=== PATIENT | male | born 1955 | race Caucasian/White ===

== ENCOUNTER 2020-08-07 12:07 | Observation (INO) | payer BC, OTHER ==
[2020-08-07] VITALS (9 sets, daily range): BP systolic 112–152; BP diastolic 53–95
[~2020-08-07] VITALS: Ht 180.3 cm; Wt 158.6 kg
[~2020-08-07 12:07] MED LIST: ASPI-482 PO; CIPR500T94 PO; HYDR12.575 PO; KRIL500C PO; LISI20TA18 PO; LOVA20TA2 PO; TAMS0.4C97 PO; THIA100T22 PO
--- NOTE | 2020-08-07 13:09 | ED.ADGEN ---
Past Medical History Past Medical History: High Cholesterol, Hypertension, Other Additional Past Medical Histor: obesity Past Surgical History: No Surgical History Smoking Status: Never Smoker Alcohol Use: Rarely Drug Use: None General Adult EDM: Chief Complaint: LOWEREXTREMITY INJURY HPI: HPI: Patient is a 65 year old male, accompanied by his brother, who presents to the emergency room with complaints of left lower leg pain. Patient states that he got up to do some steps because he has been working at home and when he stood up his left ankle gave out and he heard a loud pop. Patient states he has been unable to bear weight on the affected extremity since injury. He denies any knee, hip, or back pain after the fall. He currently rates his pain a 3 out of 10 on pain scale. He states he has felt a little nauseated by the pain but he denies any need for pain or nausea medication at this time. Review of Systems: Review of Systems: Complete ROS is negative unless otherwise noted in HPI. Allergies: Allergies: Allergies Coded Allergies Type Severity Reaction Last Updated Verified No Known Drug Allergies 10/20/13 No Physical Exam: PE: See Above Constitutional: Well developed, well nourished, no acute distress, non-toxic appearance, obese. [] HENT: Normocephalic, atraumatic, bilateral external ears normal, nose normal. [] Eyes: PERRLA, EOMI, conjunctiva normal, no discharge. [] Neck: Normal range of motion, no stridor. [] Cardiovascular:Heart rate regular rhythm Lungs & Thorax: Respirations even and unlabored, no retractions, no respiratory distress Skin: Warm, dry, no erythema, no rash. [] Extremities: LLE: medial and lateral TTP without crepitus or obvious deformity, 2+ pedal pulse, No cyanosis, ROM limited due to injury, 1+ edema. [] Neurologic: Alert and oriented X 3, no focal deficits noted. [] Psychologic: Affect normal, judgement normal, mood normal. [] Current Patient Data: Vital Signs: Vital Signs Date Time Temp Pulse Resp B/P (MAP) Pulse Ox O2 Delivery O2 Flow Rate FiO2 08/07/20 12:19 99.0 106 22 136/66 (89) 96 Room Air 99.0 EKG: EKG: [] Heart Score: Risk Factors: Risk Factors: DM, Current or recent (<one month) smoker, HTN, HLP, family history of CAD, obesity. Risk Scores: Score 0 - 3: 2.5% MACE over next 6 weeks - Discharge Home Score 4 - 6: 20.3% MACE over next 6 weeks - Admit for Clinical Observation Score 7 - 10: 72.7% MACE over next 6 weeks - Early Invasive Strategies Radiology/Procedures: Radiology/Procedures: PROCEDURE: ANKLE LEFT 3V EXAM: AP, oblique and lateral views of the left ankle DATE: 08/07/2020 12:34 PM INDICATION: Reason: L ankle pain after fall and feeling pop / Spl. Instructions: / History: COMPARISON: No Prior FINDINGS: There is a transverse fracture through the base of the medial malleolus with lateral subluxation of the talus relative to the tibia. In addition there is widening of the distal tibiofibular syndesmosis as well as an oblique fracture through the distal fibular shaft. Subtle lucency through the posterior malleolus suspicious for nondisplaced posterior malleolar fracture. Ankle joint effusion. Moderate associated soft tissue swelling. Small plantar calcaneal enthesophyte. IMPRESSION: 1. Left ankle fracture with transverse fracture through the base of the medial malleolus, oblique fracture through the distal fibular shaft and suspected nondisplaced posterior malleolar fracture. 2. Ankle joint soft tissue swelling.[] Course & Med Decision Making: Course & Med Decision Making Pertinent Labs and Imaging studies reviewed. (See chart for details) 1300-advised Dr. Peralta and patient in the emergency department with a left ankle fracture. Patient's last p.o. intake was at 9:00 this morning. We will keep patient n.p.o. and advise him of need for surgery. We will also admit patient to the hospitalist. [address] Khanna who is the admitting physician, and care was assumed following discussion of patient. Will admit patient for left ankle fracture Patient's vital signs stable. Patient remains afebrile, appears nontoxic, respirations even and unlabored. Patient will be admitted to the medical/surgical floor. Patient's case and plan of care also discussed with Dr. Vera [] Kris Disclaimer: Kris Disclaimer: This electronic medical record was generated, in whole or in part, using a voice recognition dictation system. Departure Departure Impression: Primary Impression: Closed left ankle fracture Disposition: 09 ADMITTED INPT THIS HOSP Admitting Physician: FERMIN (Jey) Condition: STABLE Referrals: MIHIR FULLER MD (PCP) Problem Qualifiers Primary Impression: Closed left ankle fracture Encounter type: initial encounter Qualified Codes: S82.892A - Other fracture of left lower leg, initial encounter for closed fracture SALVADOR SAMPSON APRN Aug 07, 2020 13:09
--- NOTE | 2020-08-07 13:09 | RAD ---
EXAM: AP, oblique and lateral views of the left ankle DATE: 08/07/2020 12:34 PM INDICATION: Reason: L ankle pain after fall and feeling pop / Spl. Instructions: / History: COMPARISON: No Prior FINDINGS: There is a transverse fracture through the base of the medial malleolus with lateral subluxation of t he talus relative to the tibia. In addition there is widening of the distal tibiofibular syndesmosis as well as an oblique fracture through the distal fibular shaft. Subtle lucency through the posterio r malleolus suspicious for nondisplaced posterior malleolar fracture. Ankle joint effusion. Moderate associated soft tissue swelling. Small plantar calcaneal enthesophyte. IMPRESSION: 1. Left ankle fracture with transverse fracture through the base of the medial malleolus, oblique fr acture through the distal fibular shaft and suspected nondisplaced posterior malleolar fracture. 2. Ankle joint soft tissue swelling. Electronically signed by: Alfonzo Brumfield MD (08/07/2020 1:06 PM) APRIL
[2020-08-07 13:26] LABS: BASO % 1 % (0-3); EOS # 0.1 x10^3/uL (0.0-0.7); EOS % 2 % (0-3); HEMATOCRIT 44.2 % (39.0-53.0); HEMOGLOBIN 15.1 g/dL (13.0-17.5); LYMPH # 1.4 x10^3/uL (1.0-4.8); LYMPH % 21 % (24-48); MEAN CORPUSCULAR HEMOGLOBIN 31 pg (25-35); MEAN CORPUSCULAR HGB CONC 34 g/dL (31-37); MEAN CORPUSCULAR VOLUME 92 fL (79-100); MONO # 0.4 x10^3/uL (0.0-1.1); MONO % 5 % (0-9); NEUT # 4.6 x10^3/uL (1.8-7.7); NEUT % 71 % (31-73); PLATELET COUNT 137 x10^3/uL (140-400); RED BLOOD COUNT 4.81 x10^6/uL (4.30-5.70); RED CELL DISTRIBUTION WIDTH 14.3 % (11.5-14.5); WHITE BLOOD COUNT 6.4 x10^3/uL (4.0-11.0)
[2020-08-07] MEDS ORDERED: fentaNYL PF VIAL 100 MCG/2 ML VIAL IV PRN (13:30)
[2020-08-07] MEDS ORDERED: HYDROmorphone 2 MG/ML VIAL IV PRN (13:30)
[2020-08-07] MEDS ORDERED: PROCHLORPERAZINE 10 MG/2 ML VIAL. IV PRN (13:30)
[2020-08-07] MEDS ORDERED: ONDANSETRON PF 4 MG/2 ML VIAL. IV PRN ×2 (13:30→14:45)
[2020-08-07] MEDS ORDERED: IV RINGERS,LACTATED 1000ML 1,000 ML IV SCH (13:30)
[2020-08-07 13:38] LABS: CALCIUM 9.4 mg/dL (8.5-10.1); CREATININE 1.2 mg/dL (0.7-1.3); GFR 61.1; POTASSIUM 4.9 mmol/L (3.5-5.1)
--- NOTE | 2020-08-07 14:28 | PDOC1 ---
History and Physical Date of Admission Date of Admission DATE: 08/07/20 TIME: 14:28 Identification/Chief Complaint Chief Complaint 65 year old male, accompanied by his brother, who presents to the emergency room with complaints of left lower leg pain. Patient states that he got up to do some EXERCISE steps because he has been working at home and when he stood up his left ankle gave out and he heard a loud pop. Patient states he has been unable to bear weight on the affected extremity since injury. He denies any knee, hip, or back pain after the fall. He currently rates his pain a 3 out of 10 on pain scale. he has felt a little nauseated by the pain D/W BROTHER IN ER, NPO Past Medical History Past Medical History Past Medical History Past Medical History: High Cholesterol, Hypertension, Other Additional Past Medical Histor: obesity Past Surgical History: No Surgical History Smoking Status: Never Smoker Alcohol Use: Rarely Drug Use: None fhx HTN Cardiovascular: Hyperlipidemia Pulmonary: No pertinent hx GI: No pertinent hx Heme/Onc: No pertinent hx Infectious disease: No pertinent hx ENT: No pertinent hx Renal/: No pertinent hx Dermatology: No pertinent hx Family History Family History: Hypertension Social History Smoke: No ALCOHOL: none Drugs: None, Other (WORKS [employer] ) Current Problem List Problem List Problems Medical Problems: (1) Closed left ankle fracture Status: Acute Current Medications Current Medications Current Medications Ondansetron HCl (Zofran) 4 mg PRN Q6HRS PRN IV NAUSEA/VOMITING; Start 08/07/20 at 13:30; Stop 08/08/20 at 13:29 Fentanyl Citrate (Fentanyl 2ml Vial) 25 mcg PRN Q5MIN PRN IV MILD PAIN 1-3; Start 08/07/20 at 13:30; Stop 08/08/20 at 13:29 Fentanyl Citrate (Fentanyl 2ml Vial) 50 mcg PRN Q5MIN PRN IV MODERATE TO SEVERE PAIN; Start 08/07/20 at 13:30; Stop 08/08/20 at 13:29 Morphine Sulfate (Morphine Sulfate) 1 mg PRN Q10MIN PRN IV SEVERE PAIN 7-10; Start 08/07/20 at 13:30; Stop 08/08/20 at 13:29 Ringer's Solution 1,000 ml @ 30 mls/hr Q24H IV ; Start 08/07/20 at 13:30; Stop 08/08/20 at 01:29 Hydromorphone HCl (Dilaudid) 0.5 mg PRN Q10MIN PRN IV SEV PAIN, Second choice; Start 08/07/20 at 13:30; Stop 08/08/20 at 13:29 Prochlorperazine Edisylate (Compazine) 5 mg PACU PRN PRN IV NAUSEA, MRX1; Start 08/07/20 at 13:30; Stop 08/08/20 at 13:29 Active Scripts Active Reported Krill Oil 500 Mg Capsule 300 Mg PO DAILY Vitamin B-1 (Thiamine Mononitrate) 100 Mg Tablet 100 Mg PO DAILY Cipro (Ciprofloxacin Hcl) 500 Mg Tablet 500 Mg PO BID Aspir 81 (Aspirin) 81 Mg Tablet.dr 81 Mg PO DAILY Flomax (Tamsulosin Hcl) 0.4 Mg Cap.er.24h 0.4 Mg PO DAILY Lovastatin 20 Mg Tablet 20 Mg PO DAILY Hydrochlorothiazide 12.5 Mg Capsule 6.25 Mg PO DAILY Lisinopril 20 Mg Tablet 20 Mg PO DAILY Allergies Allergies: Coded Allergies: No Known Drug Allergies (Unverified , 10/20/13) ROS General: No: Chills, Night Sweats, Fatigue, Malaise, Appetite, Other PSYCHOLOGICAL ROS: No: Anxiety, Behavioral Disorder, Concentration difficultie, Decreased libido, Depression, Disorientation, Hallucinations, Hostility, Irritablity, Memory difficulties, Mood Swings, Obsessive thoughts, Physical abuse, Sexual abuse, Sleep disturbances, Suicidal ideation, Other Eyes: No Blurry vision, No Decreased vision, No Double vision, No Dry eyes, No Excessive tearing, No Eye Pain, No Itchy Eyes, No Loss of vision, No Photophobia, No Scotomata, No Uses contacts, No Uses glasses, No Other HEENT: No: Heacaches, Visual Changes, Hearing change, Nasal congestion, Nasal discharge, Oral lesions, Sinus pain, Sore Throat, Epistaxis, Sneezing, Snoring, Tinnitus, Vertigo, Vocal changes, Other ALLERGY AND IMMUNOLOGY: No: Hives, Insect Bite Sensitivity, Itchy/Watery Eyes, Nasal Congestion, Post Nasal Drip, Seasonal Allergies, Other Hematological and Lymphatic: No: Bleeding Problems, Blood Clots, Blood Transfusions, Brusing, Night Sweats, Pallor, Swollen Lymph Nodes, Other ENDOCRINE: No: Breast Changes, Galactorrhea, Hair Pattern Changes, Hot Flashes, Malaise/lethargy, Mood Swings, Palpitations, Polydipsia/polyuria, Skin Changes, Temperature Intolerance, Unexpected Weight Changes, Other Breast: No New/Changing Breast Lumps, No Nipple changes, No Nipple discharge, No Other Respiratory: No: Cough, Hemoptysis, Orthopnea, Pleuritic Pain, Shortness of breath, SOB with excertion, Sputum Changes, Stridor, Tachypnea, Wheezing, Other Cardiovascular: No Chest Pain, No Palpitations, No Orthopnea, No Paroxysmal Noc. Dyspnea, No Edema, No Lt Headedness, No Other Gastrointestinal: No Nausea, No Vomiting, No Abdominal Pain, No Diarrhea, No Constipation, No Melena, No Hematochezia, No Other Genitourinary: No Dysuria, No Frequency, No Incontinence, No Hematuria, No Retention, No Discharge, No Urgency, No Pain, No Flank Pain, No Other, No , No , No , No , No , No , No Musculoskeletal: Yes Gait Disturbance, Yes Joint Pain Neurological: Yes Gait Disturbance; No Behavorial Changes, No Bowel/Bladder ControlChng, No Confusion, No Dizziness, No Headaches, No Impaired Coord/balance, No Memory Loss, No Numbness/Tingling, No Seizures, No Speech Problems, No Tremors, No Visual Changes, No Weakness, No Other Skin: No Dry Skin, No Eczema, No Hair Changes, No Lumps, No Mole Changes, No Mottling, No Nail Changes, No Pruritus, No Rash, No Skin Lesion Changes, No Other, No Acne Physical Exam Physical Exam Constitutional: Well developed, well nourished, MILD acute distress, non-toxic appearance, obese. [] HENT: Normocephalic, atraumatic, bilateral external ears normal, nose normal. [] Eyes: PERRLA, EOMI, conjunctiva normal, no discharge. [] Neck: Normal range of motion, no stridor. [] Cardiovascular:Heart rate regular rhythm Lungs & Thorax: Respirations even and unlabored, no retractions, no respiratory distress Skin: Warm, dry, no erythema, no rash. [] Extremities: LLE: medial and lateral TTP without crepitus or obvious deformity, 2+ pedal pulse, No cyanosis, ROM limited due to injury, 1+ edema. [] Neurologic: Alert and oriented X 3, no focal deficits noted. [] Psychologic: Affect normal, judgment normal, mood normal. [] General: Alert, Oriented X3, Cooperative, mild distress HEENT: Atraumatic, PERRLA, EOMI, Mucous membr. moist/pink Lungs: Clear to auscultation, Normal air movement Heart: S1S2, RRR, no thrills, no gallops Breasts: Not examined Abdomen: Normal bowel sounds, Soft Rectal Exam: not examined PELVIC: Examination not indicated Extremities: No clubbing, No cyanosis, Normal pulses Neuro: Normal speech, Cranial nerves 3-12 NL Psych/Mental Status: Mental status NL, Mood NL Vitals Vitals Vital Signs Date Time Temp Pulse Resp B/P (MAP) Pulse Ox O2 Delivery O2 Flow Rate FiO2 08/07/20 12:19 99.0 106 22 136/66 (89) 96 Room Air 99.0 Labs Labs Laboratory Tests Test 08/07/20 13:10 08/07/20 13:25 White Blood Count 6.4 x10^3/uL (4.0-11.0) Red Blood Count 4.81 x10^6/uL (4.30-5.70) Hemoglobin 15.1 g/dL (13.0-17.5) Hematocrit 44.2 % (39.0-53.0) Mean Corpuscular Volume 92 fL (79-100) Mean Corpuscular Hemoglobin 31 pg (25-35) Mean Corpuscular Hemoglobin Concent 34 g/dL (31-37) Red Cell Distribution Width 14.3 % (11.5-14.5) Platelet Count 137 x10^3/uL (140-400) Neutrophils (%) (Auto) 71 % (31-73) Lymphocytes (%) (Auto) 21 % (24-48) Monocytes (%) (Auto) 5 % (0-9) Eosinophils (%) (Auto) 2 % (0-3) Basophils (%) (Auto) 1 % (0-3) Neutrophils # (Auto) 4.6 x10^3/uL (1.8-7.7) Lymphocytes # (Auto) 1.4 x10^3/uL (1.0-4.8) Monocytes # (Auto) 0.4 x10^3/uL (0.0-1.1) Eosinophils # (Auto) 0.1 x10^3/uL (0.0-0.7) Basophils # (Auto) 0.0 x10^3/uL (0.0-0.2) Sodium Level 139 mmol/L (136-145) Potassium Level 4.9 mmol/L (3.5-5.1) Chloride Level 100 mmol/L (98-107) Carbon Dioxide Level 29 mmol/L (21-32) Anion Gap 10 (6-14) Blood Urea Nitrogen 14 mg/dL (8-26) Creatinine 1.2 mg/dL (0.7-1.3) Estimated GFR (Cockcroft-Gault) 61.1 Glucose Level 130 mg/dL (70-99) Calcium Level 9.4 mg/dL (8.5-10.1) SARS-CoV-2 Antigen (Rapid) Negative (NEGATIVE) Laboratory Tests Test 08/07/20 13:10 08/07/20 13:25 White Blood Count 6.4 x10^3/uL (4.0-11.0) Red Blood Count 4.81 x10^6/uL (4.30-5.70) Hemoglobin 15.1 g/dL (13.0-17.5) Hematocrit 44.2 % (39.0-53.0) Mean Corpuscular Volume 92 fL (79-100) Mean Corpuscular Hemoglobin 31 pg (25-35) Mean Corpuscular Hemoglobin Concent 34 g/dL (31-37) Red Cell Distribution Width 14.3 % (11.5-14.5) Platelet Count 137 x10^3/uL (140-400) Neutrophils (%) (Auto) 71 % (31-73) Lymphocytes (%) (Auto) 21 % (24-48) Monocytes (%) (Auto) 5 % (0-9) Eosinophils (%) (Auto) 2 % (0-3) Basophils (%) (Auto) 1 % (0-3) Neutrophils # (Auto) 4.6 x10^3/uL (1.8-7.7) Lymphocytes # (Auto) 1.4 x10^3/uL (1.0-4.8) Monocytes # (Auto) 0.4 x10^3/uL (0.0-1.1) Eosinophils # (Auto) 0.1 x10^3/uL (0.0-0.7) Basophils # (Auto) 0.0 x10^3/uL (0.0-0.2) Sodium Level 139 mmol/L (136-145) Potassium Level 4.9 mmol/L (3.5-5.1) Chloride Level 100 mmol/L (98-107) Carbon Dioxide Level 29 mmol/L (21-32) Anion Gap 10 (6-14) Blood Urea Nitrogen 14 mg/dL (8-26) Creatinine 1.2 mg/dL (0.7-1.3) Estimated GFR (Cockcroft-Gault) 61.1 Glucose Level 130 mg/dL (70-99) Calcium Level 9.4 mg/dL (8.5-10.1) SARS-CoV-2 Antigen (Rapid) Negative (NEGATIVE) Images Images PATIENT: BEKAH FRANK ACCOUNT: [id number] : 1955 LOCATION: ER AGE: 65 SEX: M EXAM STATUS: REG ER ORD. PHYSICIAN: SALVADOR SAMPSON APRN REASON: L ankle pain after fall and feeling pop PROCEDURE: ANKLE LEFT 3V EXAM: AP, oblique and lateral views of the left ankle DATE: 08/07/2020 12:34 PM INDICATION: Reason: L ankle pain after fall and feeling pop / Spl. Instructions: / History: COMPARISON: No Prior FINDINGS: There is a transverse fracture through the base of the medial malleolus with l ateral subluxation of the talus relative to the tibia. In addition there is widening of the distal tibiofibular syndesmosis as well as an oblique fracture through the distal fibular shaft. Subtle lucency through the posterior malleolus suspicious for nondisplaced posterior malleolar fracture. Ankle joint effusion. Moderate associated soft tissue swelling. Small plantar calcaneal e nthesophyte. IMPRESSION: 1. Left ankle fracture with transverse fracture through the base of the medial malleolus, oblique fracture through the distal fibular shaft and suspected nondisplaced posterior malleolar fracture. 2. Ankle joint soft tissue swelling. Electronically signed by: Alfonzo Gilman MD (08/07/2020 1:06 PM) [facility] DICTATED and SIGNED BY: ALFONZO GILMAN MD DATE: 08/07/20 [id number] VTE Prophylaxis Ordered VTE Prophylaxis Devices: Contraindicated VTE Pharmacological Prophylaxi: Yes Assessment/Plan Assessment/Plan IMPRESSION: 1. ACUTE Left ankle fracture with transverse fracture through the base of the medial malleolus, oblique fracture through the distal fibular shaft and suspected nondisplaced posterior malleolar fracture. 2. Morbid obesity 3. MECHANICAL FALL AT HOME , TWISTING ANKLE plan admit observation NPO IV PAIN CONTROL ortho consult IV FLUID SUPPORT DVT PROPHYLAXIS D/W ER DR Justifications for Admission Other Justification BEKAH SHER MD Aug 07, 2020 14:28
[2020-08-07] MEDS ORDERED: MAG HYDROX/ALUMINUM HYD/SIMETH 30 ML ORAL.SUSP PO PRN (14:45)
[2020-08-07] MEDS ORDERED: ACETAMINOPHEN 325 MG TABLET. PO PRN (14:45)
[2020-08-07] MEDS ORDERED: cloNIDine HCL 0.1 MG TABLET PO PRN (14:45)
[2020-08-07] MEDS ORDERED: guaiFENesin ORAL 200 MG/10 ML LIQUID. PO PRN (14:45)
[2020-08-07] MEDS ORDERED: DOCUSATE SODIUM 100 MG CAPSULE. PO PRN (14:45)
[2020-08-07] MEDS ORDERED: ALBUTEROL SULFATE 2.5 MG/3 ML NEBU. NEB PRN (14:45)
[2020-08-07] MEDS ORDERED: ZOLPIDEM 5 MG TABLET. PO PRN (14:45)
[2020-08-07] MEDS ORDERED: SODIUM PHOSPHATES 19/7GM 133 ML ENEMA. PR PRN (14:45)
[2020-08-07] MEDS ORDERED: LORazepam 0.5 MG TABLET PO PRN (14:45)
[2020-08-07] MEDS: IV NORMAL SALINE 1000ML BAG 1,000 ML IV SCH (14:45)
[2020-08-07] MEDS ORDERED: 0.9 % SODIUM CHLORIDE 10 ML DISP.SYRIN. IV PRN (14:45)
[2020-08-07] MEDS ORDERED: PROPOFOL 10 MG/ML (20ML) VIAL. IV ONE (14:55)
[2020-08-07] MEDS ORDERED: LIDOCAINE 2% PF 5 ML VIAL. ONE (14:55)
[2020-08-07] MEDS ORDERED: fentaNYL PF VIAL 100 MCG/2 ML VIAL ONE ×3 (14:58→17:26)
[2020-08-07] MEDS ORDERED: ceFAZolin SODIUM IV Push 1 GM VIAL. IVP ONE (15:13)
[2020-08-07] MEDS ORDERED: ONDANSETRON PF 4 MG/2 ML VIAL. ONE (15:27)
[2020-08-07] MEDS ORDERED: DEXAMETHASONE SOD PHOS 4 MG/ML VIAL ONE (15:27)
[2020-08-07] MEDS ORDERED: SEVOFLURANE 31 TO 60 MINUTES. IH ONE (15:27)
[2020-08-07] MEDS ORDERED: PHENYLEPHRINE in 0.9% NACL PF 1 MG/10 ML SYRINGE. IV ONE (16:23)
[2020-08-07] MEDS ORDERED: MORPHINE SULFATE 2 MG/ML VIAL. ONE (17:00)
[2020-08-07] MEDS: MORPHINE SULFATE 2 MG/ML VIAL. IV PRN ×2 (17:07→17:24)
[2020-08-07] MEDS: fentaNYL PF VIAL 100 MCG/2 ML VIAL IV PRN ×4 (17:13→17:45)
--- NOTE | 2020-08-07 18:28 | PDOC4 ---
Operative Note Operative Note Date of surgery: 08/07/2020 Preoperative diagnosis: Displaced left bimalleolar ankle fracture Postoperative diagnosis: Same Operative procedure: Operative reduction internal fixation left bimalleolar ankle fracture Surgeon: Kathryn Glass Cut Off Tender: Harvey jacob Anesthesia: General Estimated blood loss: 25 cc Complications: None Operative indications: Please see my dictated orthopedic consult for detailed operative indications Operative text: Patient was identified procedure verified patient placed in the supine position on the operating table. After adequate amounts of general anesthesia were administered the left lower extremity was prepped and draped in standard sterile fashion with a thigh tourniquet. After timeout was performed patient procedure identified and verified curvilinear incision was made first over the medial malleolus. Subperiosteal dissection was carried out and a total of 2 guidewires were placed and the proximal cortex was drilled and cannulated half threaded 4.0 50 mm length screws were placed with excellent fixation of the medial malleolar fragment with anatomic reduction under fluoroscopic guidance. To stabilize the ankle mortise a lateral incision was made subperiosteal dissection was carried out and a 10-hole Jacob distal fibular locking plate was placed and shaft and locking screws were placed under fluoroscopic guidance and the ankle joint was noted to be anatomically aligned throughout the mortise. all hardware was checked under multiple fluoroscopic guidance. Thorough irrigation carried out with normal saline solution closure accomplished with buried Vicryl suture. Skin closure with chang, sterile dressings were placed followed by a well-padded posterior splint. Toes were noted be warm pink on deflation of tourniquet patient was returned to recovery room in stable condition having tolerated procedure well Harvey jacob was present for the procedure assisted in prepping draping retraction closure and dressings JAMES YOU MD Aug 07, 2020 18:28
[2020-08-07] MEDS: HYDROmorphone 2 MG/ML VIAL IVP PRN ×2 (18:42→21:47)
[2020-08-07] MEDS ORDERED: oxyCODONE IR 5 MG TABLET PO PRN (19:00)
[2020-08-07] MEDS ORDERED: HYDROcodone/APAP 7.5/325MG 1 TAB TABLET PO PRN (19:00)
[2020-08-07] MEDS ORDERED: MORPHINE SULFATE 4 MG/ML VIAL. IVP PRN (19:00)
[2020-08-07] MEDS ORDERED: POLYETHYLENE GLYCOL 3350 17 GM PACKET. PO PRN (19:00)
[2020-08-07] MEDS ORDERED: ONDANSETRON PF 4 MG/2 ML VIAL. IVP PRN (19:00)
[2020-08-07] MEDS ORDERED: fentaNYL PF VIAL 100 MCG/2 ML VIAL IVP PRN (19:00)
[2020-08-07] MEDS ORDERED: DEXTROSE 50% 25 GM / 50ML DISP.SYRIN. IV PRN (19:00)
[2020-08-07] MEDS ORDERED: OMEP20TA63 PO (19:08)
[2020-08-07] MEDS: ceFAZolin SODIUM 3 GM in IV DEXTROSE 5% 100ML 100 ML IV SCH (21:22)
[2020-08-07 22:53] LABS: BILIRUBIN,URINE NEGATIVE (NEG); CLARITY,URINE CLEAR; COLOR,URINE YELLOW; NITRITE,URINE NEGATIVE (NEG); PROTEIN,URINE NEGATIVE (NEG-TRACE); UROBILINOGEN,URINE 0.2 mg/dL (0.2 mg/dL)
[2020-08-07 22:58] LABS: BACTERIA,URINE 0 /HPF (0-FEW); RBC,URINE RARE /HPF (0-2); WBC,URINE RARE /HPF (0-4)
[2020-08-07 22:59] LABS: HYALINE CASTS, URINE OCCASIONAL /HPF
--- NOTE | 2020-08-07 23:39 | CONS ---
DATE OF CONSULTATION: 08/07/2020 EMERGENCY DEPARTMENT CONSULTATION REQUESTING PHYSICIAN: Gina Welsh APRN REASON FOR CONSULTATION: Left ankle fracture. HISTORY OF PRESENT ILLNESS: The patient is a 65-year-old male who has been trying to do a set amount of exercise for weight loss and fitness and has been working at home and got up to do some steps, but he had his left ankle give out and heard a loud pop and has been having severe pain since then and inability to bear weight. He has been brought to the Emergency Department by his brother. He denies any loss of consciousness or other extremity injury and has severe pain with any movement, but a bit better controlled with some pain medicine in the Emergency Department. PAST MEDICAL HISTORY: Hypertension and hypercholesterolemia. PAST SURGICAL HISTORY: He denies any surgical history. FAMILY HISTORY: Hypertension. SOCIAL HISTORY: Denies smoking. Rare alcohol use, no drug use. 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 MEDICATIONS: List is reviewed. ALLERGIES: He has no known drug allergies. REVIEW OF SYSTEMS: Denies any loss of consciousness, no head injury, visual changes, chest pain, shortness of breath, focal weakness, numbness, tingling, neck or back pain, no other extremity pain aside from the left ankle pain and deformity. PHYSICAL EXAMINATION: VITAL SIGNS: Temperature 99.0, pulse 106, respirations 22, blood pressure 136/66, 96% saturation on room air. HEENT: Atraumatic, normocephalic. HEART: Regular rate and rhythm. LUNGS: Clear to auscultation. EXTREMITIES: Benign. He can fully move shoulders, elbows, wrists bilaterally with no instability, tenderness on palpation. On examination of lower extremities, has obvious deformity with only some slight swelling to the left ankle. No skin compromise is present, but he has gross instability and severe pain with any movement. Normal examination of the contralateral right ankle, bilateral hips and knees and overall intact motor function, distal pulses, sensation in both upper and lower extremities throughout. No skin compromise present over the ankle. IMAGING: X-rays show a displaced bimalleolar left ankle fracture. IMPRESSION: Left displaced bimalleolar ankle fracture. TREATMENT PLAN: I had gone over with him the structure and function of the ankle, the significance of the displaced bimalleolar ankle fracture and the recommended operative treatment. We talked about the risks of possible infection, nonhealing, nerve or blood vessel damage, stiffness, even under the best of circumstances, medical or other anesthetic complications among others and the expected recovery process with nonweightbearing initially and restricted weightbearing as healing progresses. All his questions were answered. He wishes to proceed with surgical evaluation and treatment, which will occur today as soon as medical evaluation is established because his last p.o. intake was somewhere between 8 and 9 this morning and we could take him back pending my schedule and OR availability. JAMES YOU MD DR: AIDEE/pawel JOB#: [id number] / [id number]
[2020-08-08] MEDS: IV NORMAL SALINE 1000ML BAG 1,000 ML IV SCH ×3 (00:45→20:45)
[2020-08-08 03:07] VITALS: BP 107/71
[2020-08-08] MEDS: ceFAZolin SODIUM 3 GM in IV DEXTROSE 5% 100ML 100 ML IV SCH ×2 (03:29→09:09)
[2020-08-08] MEDS: HYDROmorphone 2 MG/ML VIAL IVP PRN ×2 (03:36→09:08)
[2020-08-08] MEDS ORDERED: MAGNESIUM HYDROXIDE 2,400 MG/30 ML ORAL.SUSP. PO PRN (06:00)
[2020-08-08 07:08] LABS: BASO % 0 % (0-3); EOS % 0 % (0-3); HEMATOCRIT 41.2 % (39.0-53.0); HEMOGLOBIN 13.9 g/dL (13.0-17.5); LYMPH # 1.7 x10^3/uL (1.0-4.8); LYMPH % 19 % (24-48); MEAN CORPUSCULAR HEMOGLOBIN 31 pg (25-35); MEAN CORPUSCULAR HGB CONC 34 g/dL (31-37); MEAN CORPUSCULAR VOLUME 93 fL (79-100); MONO # 0.8 x10^3/uL (0.0-1.1); MONO % 9 % (0-9); NEUT # 6.3 x10^3/uL (1.8-7.7); NEUT % 72 % (31-73); PLATELET COUNT 146 x10^3/uL (140-400); RED BLOOD COUNT 4.43 x10^6/uL (4.30-5.70); RED CELL DISTRIBUTION WIDTH 14.5 % (11.5-14.5); WHITE BLOOD COUNT 8.8 x10^3/uL (4.0-11.0)
[2020-08-08 07:15] VITALS: BP 130/74
[2020-08-08 07:37] LABS: ALBUMIN 3.1 g/dL (3.4-5.0); ALBUMIN/GLOBULIN RATIO 0.7 (1.0-1.7); CALCIUM 9.1 mg/dL (8.5-10.1); CREATININE 1.2 mg/dL (0.7-1.3); GFR 61.1; POTASSIUM 4.1 mmol/L (3.5-5.1); TOTAL BILIRUBIN 0.4 mg/dL (0.2-1.0); TOTAL PROTEIN 7.3 g/dL (6.4-8.2)
--- NOTE | 2020-08-08 08:49 | PDOC ---
PROGRESS NOTES Date of Service DATE: 08/08/20 TIME: 08:47 Subjective Subjective Problems overnight: Doing okay slept with the CPAP, pain much better controlled this morning than immediately post surgery Objective Vital Signs Vital Signs Date Time Temp Pulse Resp B/P (MAP) Pulse Ox O2 Delivery O2 Flow Rate FiO2 08/08/20 07:15 98.2 79 18 130/74 (92) 96 Room Air 98.2 08/07/20 17:40 2 Physical Exam Distal motor function and sensation capillary refill are all intact splint clean dry intact Labs Laboratory Tests Test 08/07/20 13:10 08/07/20 13:25 08/07/20 21:40 08/08/20 06:12 White Blood Count 6.4 x10^3/uL (4.0-11.0) Red Blood Count 4.81 x10^6/uL (4.30-5.70) Hemoglobin 15.1 g/dL (13.0-17.5) Hematocrit 44.2 % (39.0-53.0) Mean Corpuscular Volume 92 fL (79-100) Mean Corpuscular Hemoglobin 31 pg (25-35) Mean Corpuscular Hemoglobin Concent 34 g/dL (31-37) Red Cell Distribution Width 14.3 % (11.5-14.5) Platelet Count 137 x10^3/uL (140-400) Neutrophils (%) (Auto) 71 % (31-73) Lymphocytes (%) (Auto) 21 % (24-48) Monocytes (%) (Auto) 5 % (0-9) Eosinophils (%) (Auto) 2 % (0-3) Basophils (%) (Auto) 1 % (0-3) Neutrophils # (Auto) 4.6 x10^3/uL (1.8-7.7) Lymphocytes # (Auto) 1.4 x10^3/uL (1.0-4.8) Monocytes # (Auto) 0.4 x10^3/uL (0.0-1.1) Eosinophils # (Auto) 0.1 x10^3/uL (0.0-0.7) Basophils # (Auto) 0.0 x10^3/uL (0.0-0.2) Sodium Level 139 mmol/L (136-145) 137 mmol/L (136-145) Potassium Level 4.9 mmol/L (3.5-5.1) 4.1 mmol/L (3.5-5.1) Chloride Level 100 mmol/L (98-107) 101 mmol/L (98-107) Carbon Dioxide Level 29 mmol/L (21-32) 28 mmol/L (21-32) Anion Gap 10 (6-14) 8 (6-14) Blood Urea Nitrogen 14 mg/dL (8-26) 15 mg/dL (8-26) Creatinine 1.2 mg/dL (0.7-1.3) 1.2 mg/dL (0.7-1.3) Estimated GFR (Cockcroft-Gault) 61.1 61.1 Glucose Level 130 mg/dL (70-99) 118 mg/dL (70-99) Calcium Level 9.4 mg/dL (8.5-10.1) 9.1 mg/dL (8.5-10.1) SARS-CoV-2 Antigen (Rapid) Negative (NEGATIVE) Urine Collection Type Unknown Urine Color Yellow Urine Clarity Clear Urine pH 6.0 (<5.0-8.0) Urine Specific [place] 1.020 (1.000-1.030) Urine Protein Negative mg/dL (NEG-TRACE) Urine Glucose (UA) 100 mg/dL (NEG) Urine Ketones (Stick) Negative mg/dL (NEG) Urine Blood Negative (NEG) Urine Nitrite Negative (NEG) Urine Bilirubin Negative (NEG) Urine Urobilinogen Dipstick 0.2 mg/dL (0.2 mg/dL) Urine Leukocyte Esterase Negative (NEG) Urine RBC Rare /HPF (0-2) Urine WBC Rare /HPF (0-4) Urine Squamous Epithelial Cells Few /LPF Urine Bacteria 0 /HPF (0-FEW) Urine Hyaline Casts Occasional /HPF Urine Mucus Slight /LPF BUN/Creatinine Ratio 13 (6-20) Total Bilirubin 0.4 mg/dL (0.2-1.0) Aspartate Amino Transf (AST/SGOT) 34 U/L (15-37) Alanine Aminotransferase (ALT/SGPT) 47 U/L (16-63) Alkaline Phosphatase 42 U/L (46-116) Total Protein 7.3 g/dL (6.4-8.2) Albumin 3.1 g/dL (3.4-5.0) Albumin/Globulin Ratio 0.7 (1.0-1.7) Test 08/08/20 06:45 White Blood Count 8.8 x10^3/uL (4.0-11.0) Red Blood Count 4.43 x10^6/uL (4.30-5.70) Hemoglobin 13.9 g/dL (13.0-17.5) Hematocrit 41.2 % (39.0-53.0) Mean Corpuscular Volume 93 fL (79-100) Mean Corpuscular Hemoglobin 31 pg (25-35) Mean Corpuscular Hemoglobin Concent 34 g/dL (31-37) Red Cell Distribution Width 14.5 % (11.5-14.5) Platelet Count 146 x10^3/uL (140-400) Neutrophils (%) (Auto) 72 % (31-73) Lymphocytes (%) (Auto) 19 % (24-48) Monocytes (%) (Auto) 9 % (0-9) Eosinophils (%) (Auto) 0 % (0-3) Basophils (%) (Auto) 0 % (0-3) Neutrophils # (Auto) 6.3 x10^3/uL (1.8-7.7) Lymphocytes # (Auto) 1.7 x10^3/uL (1.0-4.8) Monocytes # (Auto) 0.8 x10^3/uL (0.0-1.1) Eosinophils # (Auto) 0.0 x10^3/uL (0.0-0.7) Basophils # (Auto) 0.0 x10^3/uL (0.0-0.2) Laboratory Tests Test 08/07/20 13:10 08/07/20 13:25 08/07/20 21:40 08/08/20 06:12 White Blood Count 6.4 x10^3/uL (4.0-11.0) Red Blood Count 4.81 x10^6/uL (4.30-5.70) Hemoglobin 15.1 g/dL (13.0-17.5) Hematocrit 44.2 % (39.0-53.0) Mean Corpuscular Volume 92 fL (79-100) Mean Corpuscular Hemoglobin 31 pg (25-35) Mean Corpuscular Hemoglobin Concent 34 g/dL (31-37) Red Cell Distribution Width 14.3 % (11.5-14.5) Platelet Count 137 x10^3/uL (140-400) Neutrophils (%) (Auto) 71 % (31-73) Lymphocytes (%) (Auto) 21 % (24-48) Monocytes (%) (Auto) 5 % (0-9) Eosinophils (%) (Auto) 2 % (0-3) Basophils (%) (Auto) 1 % (0-3) Neutrophils # (Auto) 4.6 x10^3/uL (1.8-7.7) Lymphocytes # (Auto) 1.4 x10^3/uL (1.0-4.8) Monocytes # (Auto) 0.4 x10^3/uL (0.0-1.1) Eosinophils # (Auto) 0.1 x10^3/uL (0.0-0.7) Basophils # (Auto) 0.0 x10^3/uL (0.0-0.2) Sodium Level 139 mmol/L (136-145) 137 mmol/L (136-145) Potassium Level 4.9 mmol/L (3.5-5.1) 4.1 mmol/L (3.5-5.1) Chloride Level 100 mmol/L (98-107) 101 mmol/L (98-107) Carbon Dioxide Level 29 mmol/L (21-32) 28 mmol/L (21-32) Anion Gap 10 (6-14) 8 (6-14) Blood Urea Nitrogen 14 mg/dL (8-26) 15 mg/dL (8-26) Creatinine 1.2 mg/dL (0.7-1.3) 1.2 mg/dL (0.7-1.3) Estimated GFR (Cockcroft-Gault) 61.1 61.1 Glucose Level 130 mg/dL (70-99) 118 mg/dL (70-99) Calcium Level 9.4 mg/dL (8.5-10.1) 9.1 mg/dL (8.5-10.1) SARS-CoV-2 Antigen (Rapid) Negative (NEGATIVE) Urine Collection Type Unknown Urine Color Yellow Urine Clarity Clear Urine pH 6.0 (<5.0-8.0) Urine Specific [place] 1.020 (1.000-1.030) Urine Protein Negative mg/dL (NEG-TRACE) Urine Glucose (UA) 100 mg/dL (NEG) Urine Ketones (Stick) Negative mg/dL (NEG) Urine Blood Negative (NEG) Urine Nitrite Negative (NEG) Urine Bilirubin Negative (NEG) Urine Urobilinogen Dipstick 0.2 mg/dL (0.2 mg/dL) Urine Leukocyte Esterase Negative (NEG) Urine RBC Rare /HPF (0-2) Urine WBC Rare /HPF (0-4) Urine Squamous Epithelial Cells Few /LPF Urine Bacteria 0 /HPF (0-FEW) Urine Hyaline Casts Occasional /HPF Urine Mucus Slight /LPF BUN/Creatinine Ratio 13 (6-20) Total Bilirubin 0.4 mg/dL (0.2-1.0) Aspartate Amino Transf (AST/SGOT) 34 U/L (15-37) Alanine Aminotransferase (ALT/SGPT) 47 U/L (16-63) Alkaline Phosphatase 42 U/L (46-116) Total Protein 7.3 g/dL (6.4-8.2) Albumin 3.1 g/dL (3.4-5.0) Albumin/Globulin Ratio 0.7 (1.0-1.7) Test 08/08/20 06:45 White Blood Count 8.8 x10^3/uL (4.0-11.0) Red Blood Count 4.43 x10^6/uL (4.30-5.70) Hemoglobin 13.9 g/dL (13.0-17.5) Hematocrit 41.2 % (39.0-53.0) Mean Corpuscular Volume 93 fL (79-100) Mean Corpuscular Hemoglobin 31 pg (25-35) Mean Corpuscular Hemoglobin Concent 34 g/dL (31-37) Red Cell Distribution Width 14.5 % (11.5-14.5) Platelet Count 146 x10^3/uL (140-400) Neutrophils (%) (Auto) 72 % (31-73) Lymphocytes (%) (Auto) 19 % (24-48) Monocytes (%) (Auto) 9 % (0-9) Eosinophils (%) (Auto) 0 % (0-3) Basophils (%) (Auto) 0 % (0-3) Neutrophils # (Auto) 6.3 x10^3/uL (1.8-7.7) Lymphocytes # (Auto) 1.7 x10^3/uL (1.0-4.8) Monocytes # (Auto) 0.8 x10^3/uL (0.0-1.1) Eosinophils # (Auto) 0.0 x10^3/uL (0.0-0.7) Basophils # (Auto) 0.0 x10^3/uL (0.0-0.2) Imaging Intra-Op fluoroscopic views show anatomic reduction of ankle joint mortise with ORIF bimalleolar ankle fracture Assessment Assessment POD#1 ORIF left bimalleolar ankle fracture Plan Plan of Care Nonweightbearing left ankle in splint We discussed the possibility of a knee scooter for better mobility when he goes home and expected nonweightbearing about 6 weeks based on healing Otherwise stable from an orthopedic standpoint and plan follow-up about 2 weeks Justicifation of Admission Dx: Justifications for Admission: Justification of Admission Dx: N/A JAMES YOU MD Aug 08, 2020 08:49
[2020-08-08] MEDS: ASPIRIN 325 MG TABLET PO SCH (09:08)
[2020-08-08] MEDS: SENNOSIDES/DOCUSATE 8.6/50MG TABLET. PO SCH (09:08)
[2020-08-08] MEDS: ENOXAPARIN 40 MG/0.4 ML SYRINGE. SQ SCH ×2 (09:10→21:09)
--- NOTE | 2020-08-08 09:10 | PDOC ---
[employer] PROGRESS NOTE Date of Service DOS: DATE: 08/08/20 TIME: 09:05 Chief Complaint Chief Complaint Left ankle fracture History of Present Illness History of Present Illness 08/08/2020 - pt seen and examined - discussed tx plan with RN - discussed pain control with pt - Ancef IV protocol currently in place - post op day 1 Vitals/I&O Vitals/I&O: Vital Signs Date Time Temp Pulse Resp B/P (MAP) Pulse Ox O2 Delivery O2 Flow Rate FiO2 08/08/20 07:15 98.2 79 18 130/74 (92) 96 Room Air 98.2 08/07/20 17:40 2 I & O 08/07/20 08/07/20 08/08/20 15:00 23:00 07:00 Intake Total 1200 ml 3750 ml Output Total 50 ml 1000 ml Balance 1150 ml 2750 ml Physical Exam General: Alert, Oriented X3, Cooperative, mild distress Heart: Regular rate, Normal S1, Normal S2, No murmurs Lungs: Clear Abdomen: Normal bowel sounds, Soft Extremities: No clubbing, No cyanosis, Normal pulses Skin: No rashes Labs Labs: Laboratory Tests Test 08/07/20 13:10 08/07/20 13:25 08/07/20 21:40 08/08/20 06:12 White Blood Count 6.4 x10^3/uL (4.0-11.0) Red Blood Count 4.81 x10^6/uL (4.30-5.70) Hemoglobin 15.1 g/dL (13.0-17.5) Hematocrit 44.2 % (39.0-53.0) Mean Corpuscular Volume 92 fL (79-100) Mean Corpuscular Hemoglobin 31 pg (25-35) Mean Corpuscular Hemoglobin Concent 34 g/dL (31-37) Red Cell Distribution Width 14.3 % (11.5-14.5) Platelet Count 137 x10^3/uL (140-400) Neutrophils (%) (Auto) 71 % (31-73) Lymphocytes (%) (Auto) 21 % (24-48) Monocytes (%) (Auto) 5 % (0-9) Eosinophils (%) (Auto) 2 % (0-3) Basophils (%) (Auto) 1 % (0-3) Neutrophils # (Auto) 4.6 x10^3/uL (1.8-7.7) Lymphocytes # (Auto) 1.4 x10^3/uL (1.0-4.8) Monocytes # (Auto) 0.4 x10^3/uL (0.0-1.1) Eosinophils # (Auto) 0.1 x10^3/uL (0.0-0.7) Basophils # (Auto) 0.0 x10^3/uL (0.0-0.2) Sodium Level 139 mmol/L (136-145) 137 mmol/L (136-145) Potassium Level 4.9 mmol/L (3.5-5.1) 4.1 mmol/L (3.5-5.1) Chloride Level 100 mmol/L (98-107) 101 mmol/L (98-107) Carbon Dioxide Level 29 mmol/L (21-32) 28 mmol/L (21-32) Anion Gap 10 (6-14) 8 (6-14) Blood Urea Nitrogen 14 mg/dL (8-26) 15 mg/dL (8-26) Creatinine 1.2 mg/dL (0.7-1.3) 1.2 mg/dL (0.7-1.3) Estimated GFR (Cockcroft-Gault) 61.1 61.1 Glucose Level 130 mg/dL (70-99) 118 mg/dL (70-99) Calcium Level 9.4 mg/dL (8.5-10.1) 9.1 mg/dL (8.5-10.1) SARS-CoV-2 Antigen (Rapid) Negative (NEGATIVE) Urine Collection Type Unknown Urine Color Yellow Urine Clarity Clear Urine pH 6.0 (<5.0-8.0) Urine Specific [place] 1.020 (1.000-1.030) Urine Protein Negative mg/dL (NEG-TRACE) Urine Glucose (UA) 100 mg/dL (NEG) Urine Ketones (Stick) Negative mg/dL (NEG) Urine Blood Negative (NEG) Urine Nitrite Negative (NEG) Urine Bilirubin Negative (NEG) Urine Urobilinogen Dipstick 0.2 mg/dL (0.2 mg/dL) Urine Leukocyte Esterase Negative (NEG) Urine RBC Rare /HPF (0-2) Urine WBC Rare /HPF (0-4) Urine Squamous Epithelial Cells Few /LPF Urine Bacteria 0 /HPF (0-FEW) Urine Hyaline Casts Occasional /HPF Urine Mucus Slight /LPF BUN/Creatinine Ratio 13 (6-20) Total Bilirubin 0.4 mg/dL (0.2-1.0) Aspartate Amino Transf (AST/SGOT) 34 U/L (15-37) Alanine Aminotransferase (ALT/SGPT) 47 U/L (16-63) Alkaline Phosphatase 42 U/L (46-116) Total Protein 7.3 g/dL (6.4-8.2) Albumin 3.1 g/dL (3.4-5.0) Albumin/Globulin Ratio 0.7 (1.0-1.7) Test 08/08/20 06:45 White Blood Count 8.8 x10^3/uL (4.0-11.0) Red Blood Count 4.43 x10^6/uL (4.30-5.70) Hemoglobin 13.9 g/dL (13.0-17.5) Hematocrit 41.2 % (39.0-53.0) Mean Corpuscular Volume 93 fL (79-100) Mean Corpuscular Hemoglobin 31 pg (25-35) Mean Corpuscular Hemoglobin Concent 34 g/dL (31-37) Red Cell Distribution Width 14.5 % (11.5-14.5) Platelet Count 146 x10^3/uL (140-400) Neutrophils (%) (Auto) 72 % (31-73) Lymphocytes (%) (Auto) 19 % (24-48) Monocytes (%) (Auto) 9 % (0-9) Eosinophils (%) (Auto) 0 % (0-3) Basophils (%) (Auto) 0 % (0-3) Neutrophils # (Auto) 6.3 x10^3/uL (1.8-7.7) Lymphocytes # (Auto) 1.7 x10^3/uL (1.0-4.8) Monocytes # (Auto) 0.8 x10^3/uL (0.0-1.1) Eosinophils # (Auto) 0.0 x10^3/uL (0.0-0.7) Basophils # (Auto) 0.0 x10^3/uL (0.0-0.2) Review of Systems Review of Systems: pt denies CHRISTIAN or change in vision pt denies any abdominal pain or NV Assessment and Plan Assessmemt and Plan Problems Medical Problems: (1) Closed left ankle fracture Status: Acute Assessment - left ankle fx Plan - continue pain management - continue Ancef protocol - wound care - PT/OT - trend labs - possible d/c tomorrow Comment Review of Relevant I have reviewed the following items suzanna (where applicable) has been applied. Medications: Current Medications Medications (Trade) Dose Ordered Sig/Sanna Route PRN Reason Start Time Stop Time Status Last Admin Dose Admin Fentanyl Citrate (Fentanyl 2ml Vial) 50 mcg PRN Q5MIN PRN IV MODERATE TO SEVERE PAIN 08/07/20 13:30 08/08/20 13:29 08/07/20 17:45 Morphine Sulfate (Morphine Sulfate) 1 mg PRN Q10MIN PRN IV SEVERE PAIN 7-10 08/07/20 13:30 08/08/20 13:29 08/07/20 17:24 Ringer's Solution 1,000 ml @ 30 mls/hr Q24H IV 08/07/20 13:30 08/08/20 01:29 DC 08/07/20 15:15 Hydromorphone HCl (Dilaudid) 0.75 mg PRN Q3HRS PRN IVP SEVERE PAIN 7-10 08/07/20 14:45 08/08/20 03:36 Cefazolin Sodium 3 gm/Dextrose 100 ml @ 200 mls/hr Q6H IV 08/07/20 21:30 08/08/20 09:59 08/08/20 03:29 Justifications for Admission Other Justification AVERY RUBIO III DO Aug 08, 2020 09:10
[2020-08-08 11:03] VITALS: BP 142/61
[2020-08-08 15:06] VITALS: BP 121/80
[2020-08-08] MEDS: hydroCHLOROthiazide 25 MG TABLET PO SCH (15:52)
[2020-08-08] MEDS: LISINOPRIL 20 MG TABLET PO SCH (15:53)
[2020-08-08] MEDS: HYDROcodone/APAP 7.5/325MG 1 TAB TABLET PO PRN ×2 (15:53→21:13)
[2020-08-08] MEDS ORDERED: BISACODYL 10 MG SUPP.RECT. PR PRN (16:00)
[2020-08-08 19:00] VITALS: BP 137/52
[2020-08-08] MEDS ORDERED: ATORVASTATIN CALCIUM 10 MG TABLET. PO SCH (21:00)
[2020-08-08 23:00] VITALS: BP 137/55
[2020-08-09 02:45] VITALS: BP 140/63
[2020-08-09] MEDS: IV NORMAL SALINE 1000ML BAG 1,000 ML IV SCH ×2 (06:45→07:08)
[2020-08-09 07:00] VITALS: BP 139/75
[2020-08-09] MEDS ORDERED: PANTOPRAZOLE 40 MG TABLET.DR. PO SCH (07:30)
[2020-08-09] MEDS: SENNOSIDES/DOCUSATE 8.6/50MG TABLET. PO SCH (08:57)
[2020-08-09] MEDS: LISINOPRIL 20 MG TABLET PO SCH (08:57)
[2020-08-09] MEDS: hydroCHLOROthiazide 25 MG TABLET PO SCH (08:58)
[2020-08-09] MEDS: ASPIRIN 325 MG TABLET PO SCH (08:58)
[2020-08-09] MEDS: HYDROcodone/APAP 7.5/325MG 1 TAB TABLET PO PRN (08:58)
[2020-08-09] MEDS: ENOXAPARIN 40 MG/0.4 ML SYRINGE. SQ SCH (09:00)
--- NOTE | 2020-08-09 10:11 | NUR ---
[facility] following. Discussed with RN, pt from home, room air, regular diet. Pt accepted with [facility]. Pt needing a knee scooter - [facility] faxed script to [facility] to determine if pt has insurance coverage. Awaiting response. [facility] will continue to follow. Addendum: 08/09/20 at 1344 by CHRIS TOLBERT Pt's insurance needs to approve knee scooter, which can take up to 24 hours. [facility] met with pt to discuss options. Pt plans on using the crutches his brother has until decision on knee scooter is made. [facility] notified [facility] of this, proceeding with auth request. Pt denied any further SW needs. RN notified.
[2020-08-09 11:00] VITALS: BP 125/78
--- NOTE | 2020-08-09 11:34 | PDOC ---
[employer] PROGRESS NOTE Date of Service DOS: DATE: 08/09/20 TIME: 11:32 Chief Complaint Chief Complaint Left ankle fracture History of Present Illness History of Present Illness 08/08/2020 - pt seen and examined - discussed tx plan with RN - discussed pain control with pt - Ancef IV protocol currently in place - post op day 1 08/09/2020 - pt seen and examined - discussed d/c and tx plan with RN - discussed pain control with pt - Ancef IV protocol currently in place - post op day 2 Vitals/I&O Vitals/I&O: Vital Signs Date Time Temp Pulse Resp B/P (MAP) Pulse Ox O2 Delivery O2 Flow Rate FiO2 08/09/20 08:57 76 139/75 08/09/20 07:48 Room Air 08/09/20 07:00 99.4 16 97 99.4 I & O 08/08/20 08/08/20 08/09/20 15:00 23:00 07:00 Intake Total 820 ml 420 ml 300 ml Output Total 850 ml 400 ml 1000 ml Balance -30 ml 20 ml -700 ml Physical Exam General: Alert, Oriented X3, Cooperative, mild distress Heart: Regular rate, Normal S1, Normal S2, No murmurs Lungs: Clear Abdomen: Normal bowel sounds, Soft Extremities: No clubbing, No cyanosis, Normal pulses Skin: No rashes Review of Systems Review of Systems: pt denies change in vision or CHRISTIAN Assessment and Plan Assessmemt and Plan Problems Medical Problems: (1) Closed left ankle fracture Status: Acute Assessment - left ankle fracture Plan - d/c to home today if agreeable to pt - f/u with orthopedic surgeon - f/u with PT Comment Review of Relevant I have reviewed the following items suzanna (where applicable) has been applied. Medications: Current Medications Medications (Trade) Dose Ordered Sig/Sanna Route PRN Reason Start Time Stop Time Status Last Admin Dose Admin Hydrochlorothiazide (Hydrodiuril) 6.25 mg DAILY PO 08/08/20 15:00 08/09/20 08:58 Lisinopril (Prinivil) 20 mg DAILY PO 08/08/20 15:00 08/09/20 08:57 Atorvastatin Calcium (Lipitor) 5 mg QHS PO 08/08/20 21:00 08/08/20 21:07 Pantoprazole Sodium (Protonix) 40 mg DAILYAC PO 08/09/20 07:30 08/09/20 08:58 Justifications for Admission Other Justification AVERY RUBIO III DO Aug 09, 2020 11:33
--- NOTE | 2020-08-09 13:43 | DS ---
DATE OF DISCHARGE: 08/09/2020 ADMISSION DIAGNOSIS: Fall with left ankle fracture. DISCHARGE DIAGNOSES: Postop open reduction and internal fixation, left ankle fracture, history of hypertension, hyperlipidemia, overweight. HOSPITAL COURSE: The patient is a pleasant 65-year-old male who presented with a left ankle fracture after falling. He was admitted. We consulted Orthopedics. He was taken for ORIF. Postoperatively, he has done well. We plan to discharge with close outpatient followup. DISPOSITION: Home. ACTIVITY: As tolerated. DIET: Low sodium. MEDICATIONS: Please see the MRAD. TOTAL TIME: 32 minutes. NIAL Milagros RUBIO DO DR: MARY BETH/pawel JOB#: [id number] / [id number]
--- NOTE | 2020-08-09 14:32 | SNU/HH DC ---
DISCHARGE WITH HOME HEALTH DISCHARGE INFORMATION: Discharge Date: Aug 09, 2020 Final Diagnosis: Problems Medical Problems: (1) Closed left ankle fracture Status: Acute Condition on Discharge: Stable CODE STATUS: Code Status: Full HOME HEALTH: Face to Face: I certify this patient is under my care and that I, or a nurse practitioner or physician's expanded duty dental assistant working with me, had a face to face encounter that meets the physician face to face encounter requirements with this patient on []. Medical Complications: Falls, S/P Joint Replacement Shelter For: Assess & Educate Safety, Medication Management RN For Eval/Treatment: Yes Physical Therapy For: Evalulation/Treatment Occupational Therapy For: Evaluation/Treatment Pt Meets Homebound Status: Frequent falls w/ injury, Limited distance walking, Unable to negotiate home POST DISCHARGE ORDERS: Activity Instructions for Disc: Other, see below Weight Bearing Status after Di: Non weight bearing CHECKS AFTER DISCHARGE: Checks after discharge: Check blood press - daily, Check your Temp as needed FOLLOW-UP: Follow up with: Dr. Peralta in 2 weeks [phone] Follow Up With: Primary Care Physician within 1 week. TREATMENT/EQUIPMENT ORDERS: Adaptive Equipment Issued: None CERTIFICATION STATEMENT: Certification Statement: Certification Statement: Based on the above finding, I certify that this patient is confined to the home and needs intermittent custodial care, physical therapy and/or speech therapy, or continues to need occupational therapy.~ This patient is under my care, and I have initiated the establishment of the plan of care.~ This patient will be followed by myself or a community physician who will periodically review the plan of care. Home Meds Reported Medications Omeprazole Magnesium (PRILOSEC OTC) 20 Mg Tablet., 20 MG PO DAILY for GERD, TAB 08/07/20 Krill Oil (KRILL OIL) 500 Mg Capsule, 300 MG PO DAILY 11/02/13 Thiamine Mononitrate (VITAMIN B-1) 100 Mg Tablet, 100 MG PO DAILY 11/02/13 Lovastatin (LOVASTATIN) 20 Mg Tablet, 20 MG PO DAILY 10/20/13 Hydrochlorothiazide (HYDROCHLOROTHIAZIDE CAPSULE ) 12.5 Mg Capsule, 6.25 MG PO DAILY 10/20/13 Lisinopril (LISINOPRIL) 20 Mg Tablet, 20 MG PO DAILY 10/20/13 BARBRA SOL MD Aug 09, 2020 14:32
[2020-08-09 15:00] VITALS: BP 125/54
--- NOTE | 2020-08-09 18:04 | NUR ---
Discharge Note: BEAKH FRANK MORENCI Discharge instructions and discharge home medications reviewed with Patient and a copy given. All questions have been answered and understanding verbalized. The following instructions and handouts were given: information about home health, medications, NWB status, follow up appointments, etc. Discontinued lines: IV line in left AC removed, catheter tip intact. Patient discharged to home with home health with brother, wheelchair used for mobility to discharge vehicle.
[2020-09-04] MEDS ORDERED: APIX5TAB PO (11:02)
[2020-09-04] MEDS ORDERED: LISI-130 PO (11:02)
== END 2020-08-09 18:04 | disposition home health service (06) ==
LOC: ER 12:07 → INTOOBSV 14:11 → 4 NORTH 14:11
PROVIDERS: ADMIT Family Medicine; ATTEND Family Medicine
DX: S82.842A Displaced bimalleolar fracture of left lower leg, initial encounter for closed fracture (principal); Z20.828 Contact with and (suspected) exposure to other viral communicable diseases; S82.52XA Displaced fracture of medial malleolus of left tibia, initial encounter for closed fracture; S82.832A Other fracture of upper and lower end of left fibula, initial encounter for closed fracture; I10 Essential (primary) hypertension; E78.5 Hyperlipidemia, unspecified; E78.00 Pure hypercholesterolemia, unspecified; E66.01 Morbid (severe) obesity due to excess calories; Z79.82 Long term (current) use of aspirin; Z68.42 Body mass index [BMI] 45.0-49.9, adult; W18.30XA Fall on same level, unspecified, initial encounter; X50.1XXA Overexertion from prolonged static or awkward postures, initial encounter; Y93.89 Activity, other specified; Y92.009 Unspecified place in unspecified non-institutional (private) residence as the place of occurrence of the external cause; Y99.8 Other external cause status
CPT/HCPCS: 27814; 36415; 73610; 80048; 80053; 81001; 85025; 87426; 96365; 96366; 96372; 96375; 96376; 97116; 97162; 97166; 97530; 97535; 99284; C1713; G0378; J0690; J1100; J1170; J1650; J2270; J2370; J2405; J2704; J3010; J7060; J7120; U0003; 76000; 99285; G0379

== ENCOUNTER 2020-08-30 12:48 | Inpatient (IN) | payer BC ==
[~2020-08-30] VITALS: Ht 180.3 cm; Wt 150.8 kg
[~2020-08-30 12:48] MED LIST changes: +OMEP20TA63 PO
[2020-08-30] MEDS ORDERED: IV NORMAL SALINE 1000ML BAG 1,000 ML IV SCH (13:00)
--- NOTE | 2020-08-30 13:02 | ED.ADGEN ---
Past Medical History Past Medical History: High Cholesterol, Hypertension, Other Additional Past Medical Histor: obesity Past Surgical History: No Surgical History Past Surgical History Open reduction with internal fixation of left ankle Smoking Status: Former Smoker Alcohol Use: Rarely Drug Use: None General Adult HPI: HPI: Patient is a 65-year-old male who arrives via EMS complaining progressive shortness of air over the past 3 days. The patient reports his surgery was August 07 of this year and he had been progressing well up until the previous 3 days. Patient reports he has experienced substernal chest heaviness during this time as well and states he checked his oxygen saturation at home and noticed that it was in the mid to high 80s. The patient reports despite having the symptoms he has not had any fever or cough. He further states that he had a coronavirus test prior to surgery that was negative. He also denies any new sick contacts. He is awake, alert and uncomfortable appearing. Review of Systems: Review of Systems: Constitutional: Denies fever or chills. [] Eyes: Denies change in visual acuity. [] HENT: Denies nasal congestion or sore throat. [] Respiratory: Reports shortness of air. Denies cough. [] Cardiovascular: Reports chest pain. Denies edema. [] GI: Denies abdominal pain, nausea, vomiting, bloody stools or diarrhea. [] : Denies dysuria. [] Musculoskeletal: Denies back pain or joint pain. [] Integument: Denies rash. [] Neurologic: Denies headache, focal weakness or sensory changes. [] Endocrine: Denies polyuria or polydipsia. [] Lymphatic: Denies swollen glands. [] Psychiatric: Denies depression or anxiety. [] Current Medications: Current Medications Medications (Trade) Dose Ordered Sig/Sanna Start Time Stop Time Status Last Admin Dose Admin Acetaminophen (Tylenol) 650 mg PRN Q4HRS PRN 08/30/20 14:45 08/31/20 14:44 Enoxaparin Sodium (Lovenox 150mg Syringe) 150 mg 1X ONCE 08/30/20 14:45 08/30/20 14:46 DC Info (CONTRAST GIVEN -- Rx MONITORING) 1 each PRN DAILY PRN 08/30/20 14:15 09/01/20 14:14 Iohexol (Omnipaque 350 Mg/ml) 100 ml 1X ONCE 08/30/20 14:15 08/30/20 14:16 DC 08/30/20 14:35 100 ML Levofloxacin/ Dextrose 150 ml @ 100 mls/hr 1X ONCE 08/30/20 15:00 08/30/20 16:29 Ondansetron HCl (Zofran) 4 mg PRN Q8HRS PRN 08/30/20 14:45 08/31/20 14:44 Sodium Chloride 1,000 ml @ 1,000 mls/hr Q1H 08/30/20 13:00 08/30/20 13:59 DC 08/30/20 14:26 1,000 MLS/HR Allergies: Allergies: Allergies Coded Allergies Type Severity Reaction Last Updated Verified No Known Drug Allergies 10/20/13 No Physical Exam: PE: Constitutional: Obese, well nourished, no acute distress, non-toxic appearance. [] HENT: Normocephalic, atraumatic, bilateral external ears normal, oropharynx moist, no oral exudates, nose normal. [] Eyes: PERRLA, EOMI, conjunctiva normal, no discharge. [] Neck: Normal range of motion, no tenderness, supple, no stridor. [] Cardiovascular: Tachycardia. There is no rub or murmur [] Lungs & Thorax: Tachypnea with otherwise bilateral breath sounds clear to auscultation [] Abdomen: Bowel sounds normal, soft, no tenderness, no masses, no pulsatile masses. [] Skin: Warm, dry, no erythema, no rash. [] Back: No tenderness, no CVA tenderness. [] Extremities: No tenderness, no cyanosis, no clubbing, ROM intact, no edema. [] Neurologic: Alert and oriented X 3, normal motor function, normal sensory function, no focal deficits noted. [] Psychologic: Affect normal, judgement normal, mood normal. [] Current Patient Data: Labs: Laboratory Tests Test 08/30/20 13:04 White Blood Count 9.8 x10^3/uL (4.0-11.0) Red Blood Count 5.04 x10^6/uL (4.30-5.70) Hemoglobin 15.8 g/dL (13.0-17.5) Hematocrit 46.4 % (39.0-53.0) Mean Corpuscular Volume 92 fL (79-100) Mean Corpuscular Hemoglobin 31 pg (25-35) Mean Corpuscular Hemoglobin Concent 34 g/dL (31-37) Red Cell Distribution Width 13.9 % (11.5-14.5) Platelet Count 189 x10^3/uL (140-400) Neutrophils (%) (Auto) 81 % (31-73) H Lymphocytes (%) (Auto) 14 % (24-48) L Monocytes (%) (Auto) 5 % (0-9) Eosinophils (%) (Auto) 1 % (0-3) Basophils (%) (Auto) 0 % (0-3) Neutrophils # (Auto) 7.9 x10^3/uL (1.8-7.7) H Lymphocytes # (Auto) 1.3 x10^3/uL (1.0-4.8) Monocytes # (Auto) 0.5 x10^3/uL (0.0-1.1) Eosinophils # (Auto) 0.1 x10^3/uL (0.0-0.7) Basophils # (Auto) 0.0 x10^3/uL (0.0-0.2) Sodium Level 136 mmol/L (136-145) Potassium Level 3.8 mmol/L (3.5-5.1) Chloride Level 99 mmol/L (98-107) Carbon Dioxide Level 26 mmol/L (21-32) Anion Gap 11 (6-14) Blood Urea Nitrogen 15 mg/dL (8-26) Creatinine 1.3 mg/dL (0.7-1.3) Estimated GFR (Cockcroft-Gault) 55.8 BUN/Creatinine Ratio 12 (6-20) Glucose Level 142 mg/dL (70-99) H Calcium Level 10.1 mg/dL (8.5-10.1) Total Bilirubin 0.5 mg/dL (0.2-1.0) Aspartate Amino Transferase (AST) 28 U/L (15-37) Alanine Aminotransferase (ALT) 55 U/L (16-63) Alkaline Phosphatase 86 U/L (46-116) Troponin I Quantitative 0.049 ng/mL (0.000-0.055) BG-Icf-B-Type Natriuretic Peptide 424 pg/mL (0-124) H Total Protein 8.2 g/dL (6.4-8.2) Albumin 3.4 g/dL (3.4-5.0) Albumin/Globulin Ratio 0.7 (1.0-1.7) L Laboratory Tests 08/30/20 13:04 Laboratory Tests 08/30/20 13:04 Vital Signs: Vital Signs Date Time Temp Pulse Resp B/P (MAP) Pulse Ox O2 Delivery O2 Flow Rate FiO2 08/30/20 12:48 98.7 120 24 149/72 (97) 89 Room Air 98.7 EKG: EKG: [] EKG was obtained at 1256 hrs. which reveals a sinus tachycardia with a ventricular rate of 114 bpm. There are what appear to be ST/T wave changes in the lateral leads. This may demonstrate ongoing ischemia. There is no STEMI present. Heart Score: HEART Score for Chest Pain: HEART Score for Chest Pain Response (Comments) Value History Moderately Suspicious 1 ECG Nonspecific Repolarizatio 1 Age >45 - < 65 1 Risk Factors 1 or 2 Risk Factors 1 Troponin >1-<3x Normal Limit 1 Total 5 Risk Factors: Risk Factors: DM, Current or recent (<one month) smoker, HTN, HLP, family history of CAD, obesity. Risk Scores: Score 0 - 3: 2.5% MACE over next 6 weeks - Discharge Home Score 4 - 6: 20.3% MACE over next 6 weeks - Admit for Clinical Observation Score 7 - 10: 72.7% MACE over next 6 weeks - Early Invasive Strategies Radiology/Procedures: Radiology/Procedures: [] Impression: [facility] [address] [place] [address] IMAGING REPORT Signed PATIENT: BEKAH FRANK ACCOUNT: [id number] : 1955 LOCATION: ER AGE: 65 SEX: M EXAM STATUS: REG ER ORD. PHYSICIAN: SHWETA RIVAS DO REASON: Pain/shortness of air PROCEDURE: PORTABLE CHEST 1V XR CHEST 1V Clinical Indication: Reason: Pain/shortness of air / Spl. Instructions: / History: Comparison: None. Findings: The cardiomediastinal silhouette is normal. There is right hilar opacity measuring 3.8 cm. Eventration of lateral right hemidiaphragm. Lungs are clear. There is no pneumothorax. No pleural effusion is appreciated. No acute bone abnormality. IMPRESSION: Right hilar opacity may be prominent vasculature or adenopathy or mass. Consider further evaluation with CT. Electronically signed by: Wyatt Neville MD (08/30/2020 1:51 PM) [facility] DICTATED and SIGNED BY: WYATT NEVILLE MD DATE: 08/30/[id number] [facility] [address] [place] [address] IMAGING REPORT Signed PATIENT: BEKAH FRANK ACCOUNT: [id number] : 1955 LOCATION: ER AGE: 65 SEX: M EXAM STATUS: REG ER ORD. PHYSICIAN: SHWETA RIVAS DO REASON: Shortness of air PROCEDURE: CT ANGIOGRAPHY CHEST PQRS Compliance Statement: One or more of the following individualized dose reduction techniques were utilized for this examination: 1. Automated exposure control 2. Adjustment of the mA and/or kV according to patient size 3. Use of iterative reconstruction technique CT CHEST WITH CONTRAST, PULMONARY ANGIOGRAM History: Reason: Shortness of air / Comparison: AP chest, earlier same day. Technique: Helical CT of the chest was performed after the administration of 90 cc of Omnipaque 350 intravenous contrast according to PE protocol. Axial and coronal reconstructions were obtained. 3-D MIP images were constructed to better evaluate the pulmonary arteries. Findings: Pulmonary arteries are adequately opacified. There are bilateral pulmonary emboli in all 5 lobes. The most central thrombus is in the distal main pulmonary arteries. There is evidence of right ventricular strain. Calcific aortic valve stenosis. There is no thoracic aortic dissection. Great vessels are normal caliber. Thyroid is symmetric. There is no adenopathy in the chest. Coronary artery disease. Cardiac size is normal, no pericardial effusion. There is no pleural effusion. There is atelectasis in the right lower lobe. Calc ified granuloma left upper lobe. Groundglass opacities in the posterior left upper lobe may be infectious/inflammatory, image 59. There is groundglass opacity and patchy consolidation in the superior segment of the left lower lobe. There is probably fatty infiltration of the liver. No acute bone abnormality. IMPRESSION: 1. Study is positive for pulmonary embolus in all 5 lobes. Clot burden is moderate. There is evidence of right ventricular strain. 2. Groundglass opacities and patchy consolidation in the superior segment of the left lower lobe may be pulmonary infarct versus bronchopneumonia. 3. There are a few groundglass nodules in the posterior left upper lobe that are likely infectious/inflammatory. FOR INTERNAL CODING PURPOSES Critical result: Findings discussed with Dr. Rivas in the ED at 08/30/2020 2:51 PM. RESULT CODE: (C) 1. Electronically signed by: Wyatt Neville MD (08/30/2020 2:53 PM) [facility] DICTATED and SIGNED BY: WYATT NEVILLE MD DATE: 08/30/20 [id number] Course & Med Decision Making: Course & Med Decision Making Pertinent Labs and Imaging studies reviewed. (See chart for details) Patient has pulmonary emboli involving all 5 lobes. Patient has been given Lovenox and will be admitted to the hospital service for further evaluation and medical management. The patient understands this and has agreed to stay. He is awaiting transport to the floor. Dragon Disclaimer: Dragon Disclaimer: This electronic medical record was generated, in whole or in part, using a voice recognition dictation system. Departure Departure Impression: Primary Impression: Pulmonary emboli Additional Impression: Hypoxemia Disposition: ADMITTED INPT THIS HOSP Admitting Physician: FERMIN Condition: GUARDED Referrals: MIHIR FULLER MD (PCP) Critical Care Note Total Time (mins): 30 Comments Critical care time was utilized in treating the patient, speaking with hospital staff, reviewing imaging, lab work as well as documentation. This was exclusive of any procedures that may have been performed. Problem Qualifiers SHWETA RIVAS DO Aug 30, 2020 13:01
[2020-08-30 13:15] LABS: BASO % 0 % (0-3); EOS # 0.1 x10^3/uL (0.0-0.7); EOS % 1 % (0-3); HEMATOCRIT 46.4 % (39.0-53.0); HEMOGLOBIN 15.8 g/dL (13.0-17.5); LYMPH # 1.3 x10^3/uL (1.0-4.8); LYMPH % 14 % (24-48); MEAN CORPUSCULAR HEMOGLOBIN 31 pg (25-35); MEAN CORPUSCULAR HGB CONC 34 g/dL (31-37); MEAN CORPUSCULAR VOLUME 92 fL (79-100); MONO # 0.5 x10^3/uL (0.0-1.1); MONO % 5 % (0-9); NEUT # 7.9 x10^3/uL (1.8-7.7); NEUT % 81 % (31-73); PLATELET COUNT 189 x10^3/uL (140-400); RED BLOOD COUNT 5.04 x10^6/uL (4.30-5.70); RED CELL DISTRIBUTION WIDTH 13.9 % (11.5-14.5); WHITE BLOOD COUNT 9.8 x10^3/uL (4.0-11.0)
[2020-08-30 13:43] LABS: CALCIUM 10.1 mg/dL (8.5-10.1); CREATININE 1.3 mg/dL (0.7-1.3); GFR 55.8; POTASSIUM 3.8 mmol/L (3.5-5.1)
[2020-08-30 13:49] LABS: ALBUMIN 3.4 g/dL (3.4-5.0); ALBUMIN/GLOBULIN RATIO 0.7 (1.0-1.7); TOTAL BILIRUBIN 0.5 mg/dL (0.2-1.0); TOTAL PROTEIN 8.2 g/dL (6.4-8.2)
--- NOTE | 2020-08-30 13:53 | RAD ---
XR CHEST 1V Clinical Indication: Reason: Pain/shortness of air / Spl. Instructions: / History: Comparison: None. Findings: The cardiomediastinal silhouette is normal. There is right hilar opacity measuring 3.8 cm. Eventratio n of lateral right hemidiaphragm. Lungs are clear. There is no pneumothorax. No pleural effusion is a ppreciated. No acute bone abnormality. IMPRESSION: Right hilar opacity may be prominent vasculature or adenopathy or mass. Consider further evaluation w ith CT. Electronically signed by: Wyatt Neville MD (08/30/2020 1:51 PM) [facility]
[2020-08-30] MEDS ORDERED: CONTRAST GIVEN. MC PRN (14:15)
[2020-08-30] MEDS ORDERED: IOHEXOL 350 MG/ML 100 ML VIAL. IV ONE (14:15)
[2020-08-30] MEDS ORDERED: ACETAMINOPHEN 325 MG TABLET. PO PRN (14:45)
[2020-08-30] MEDS ORDERED: ONDANSETRON PF 4 MG/2 ML VIAL. IV PRN (14:45)
--- NOTE | 2020-08-30 14:55 | RAD ---
PQRS Compliance Statement: One or more of the following individualized dose reduction techniques were utilized for this examinat ion: 1. Automated exposure control 2. Adjustment of the mA and/or kV according to patient size 3. Use of iterative reconstruction technique CT CHEST WITH CONTRAST, PULMONARY ANGIOGRAM History: Reason: Shortness of air / Comparison: AP chest, earlier same day. Technique: Helical CT of the chest was performed after the administration of 90 cc of Omnipaque 350 intravenous contrast according to protocol. Axial and coronal reconstructions were obtained. 3-D MIP images were constructed to better evaluate the pulmonary arteries. Findings: Pulmonary arteries are adequately opacified. There are bilateral pulmonary emboli in all 5 lobes. The most central thrombus is in the distal main pulmonary arteries. There is evidence of right ventricul ar strain. Calcific aortic valve stenosis. There is no thoracic aortic dissection. Great vessels are normal bryan bipin. Thyroid is symmetric. There is no adenopathy in the chest. Coronary artery disease. Cardiac size is n ormal, no pericardial effusion. There is no pleural effusion. There is atelectasis in the right lower lobe. Calcified granuloma left upper lobe. Groundglass opacities in the posterior left upper lobe may be infectious/inflammatory, im age 59. There is groundglass opacity and patchy consolidation in the superior segment of the left low er lobe. There is probably fatty infiltration of the liver. No acute bone abnormality. IMPRESSION: 1. Study is positive for pulmonary embolus in all 5 lobes. Clot burden is moderate. There is evidenc e of right ventricular strain. 2. Groundglass opacities and patchy consolidation in the superior segment of the left lower lobe may be pulmonary infarct versus bronchopneumonia. 3. There are a few groundglass nodules in the posterior left upper lobe that are likely infectious/i nflammatory. FOR INTERNAL CODING PURPOSES Critical result: Findings discussed with Dr. Vera in the ED at 08/30/2020 2:51 PM. RESULT CODE: (C) 1. Electronically signed by: Wyatt Neville MD (08/30/2020 2:53 PM) [facility]
[2020-08-30 19:45] VITALS: BP 149/74
--- NOTE | 2020-08-30 21:13 | PDOC1 ---
History and Physical Date of Admission Date of Admission DATE: 08/30/20 TIME: 21:06 Source Source: Chart review, Patient History of Present Illness History of Present Illness Demar is a 65-year-old male admit for progressive shortness of air over the past 3 days. 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 Sa02 in the field was 80%. He had ankle surgery after a fall on the ice, August 07 of this year and he had been progressing well up until the previous 3 days. he feels better after SQ lovenox, and he had substernal chest heaviness and pain that is now better. No fever or cough. He has been tested for COVID 4 times recently, for he ankle and mult times for the research study he is in. He also denies any new sick contacts. 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 he spent 9 years in the [employer] as a young man Past Medical History Cardiovascular: Hyperlipidemia Pulmonary: No pertinent hx GI: No pertinent hx Heme/Onc: No pertinent hx Infectious disease: No pertinent hx Renal/: No pertinent hx Endocrine: Other (obese, ) Family History Family History: Hypertension Social History Smoke: No ALCOHOL: none Drugs: None, Other Current Problem List Problem List Problems Medical Problems: (1) Hypoxemia Status: Acute (2) Pulmonary emboli Status: Acute Current Medications Current Medications Current Medications Sodium Chloride 1,000 ml @ 1,000 mls/hr Q1H IV Last administered on 08/30/20at 14:26; Start 08/30/20 at 13:00; Stop 08/30/20 at 13:59; Status DC Iohexol (Omnipaque 350 Mg/ml) 100 ml 1X ONCE IV Last administered on 08/30/20at 14:35; Start 08/30/20 at 14:15; Stop 08/30/20 at 14:16; Status DC Info (CONTRAST GIVEN -- Rx MONITORING) 1 each PRN DAILY PRN MC SEE COMMENTS; Start 08/30/20 at 14:15; Stop 09/01/20 at 14:14 Enoxaparin Sodium (Lovenox 150mg Syringe) 150 mg 1X ONCE SQ Last administered on 08/30/20at 15:09; Start 08/30/20 at 14:45; Stop 08/30/20 at 14:46; Status DC Ondansetron HCl (Zofran) 4 mg PRN Q8HRS PRN IV NAUSEA/VOMITING; Start 08/30/20 at 14:45; Stop 08/31/20 at 14:44 Acetaminophen (Tylenol) 650 mg PRN Q4HRS PRN PO FEVER > 100.3'F; Start 08/30/20 at 14:45; Stop 08/31/20 at 14:44 Levofloxacin/ Dextrose 150 ml @ 100 mls/hr 1X ONCE IV Last administered on 08/30/20at 15:07; Start 08/30/20 at 15:00; Stop 08/30/20 at 16:29; Status DC Enoxaparin Sodium (Lovenox Per Pharmacy Treatment Dosing) 1 each PRN DAILY PRN MC SEE COMMENTS; Start 08/30/20 at 20:00 Enoxaparin Sodium (Lovenox 150mg Syringe) 150 mg BID SQ ; Start 08/30/20 at 20:00; Status Cancel Enoxaparin Sodium (Lovenox 150mg Syringe) 150 mg BID SQ ; Start 08/31/20 at 09:00 Active Scripts Active Reported Prilosec Otc (Omeprazole Magnesium) 20 Mg Tablet.dr 20 Mg PO DAILY Krill Oil 500 Mg Capsule 300 Mg PO DAILY Vitamin B-1 (Thiamine Mononitrate) 100 Mg Tablet 100 Mg PO DAILY Lovastatin 20 Mg Tablet 20 Mg PO DAILY Hydrochlorothiazide Capsule (Hydrochlorothiazide) 12.5 Mg Capsule 6.25 Mg PO DAILY Lisinopril 20 Mg Tablet 20 Mg PO DAILY Allergies Allergies: Coded Allergies: No Known Drug Allergies (Unverified , 10/20/13) ROS General: YES: Fatigue, Malaise; No: Chills, Night Sweats, Appetite, Other PSYCHOLOGICAL ROS: YES: Sleep disturbances; No: Anxiety, Behavioral Disorder, Concentration difficultie, Decreased libido, Depression, Disorientation, Hallucinations, Hostility, Irritablity, Memory difficulties, Mood Swings, Obsessive thoughts, Physical abuse, Sexual abuse, Suicidal ideation, Other Eyes: No Blurry vision, No Decreased vision, No Double vision, No Dry eyes, No Excessive tearing, No Eye Pain, No Itchy Eyes, No Loss of vision, No Photophobia, No Scotomata, No Uses contacts, No Uses glasses, No Other HEENT: No: Heacaches, Visual Changes, Hearing change, Nasal congestion, Nasal discharge, Oral lesions, Sinus pain, Sore Throat, Epistaxis, Sneezing, Snoring, Tinnitus, Vertigo, Vocal changes, Other Respiratory: YES: Shortness of breath, SOB with excertion, Tachypnea; No: Cough, Hemoptysis, Orthopnea, Pleuritic Pain, Sputum Changes, Stridor, Wheezing, Other Cardiovascular: yes Chest Pain; No Palpitations, No Orthopnea, No Paroxysmal Noc. Dyspnea, No Edema, No Lt Headedness, No Other Gastrointestinal: No Nausea, No Vomiting, No Abdominal Pain, No Diarrhea, No Constipation, No Melena, No Hematochezia, No Other Genitourinary: No Dysuria, No Frequency, No Incontinence, No Hematuria, No Retention, No Discharge, No Urgency, No Pain, No Flank Pain, No Other, No , No , No , No , No , No , No Musculoskeletal: Yes Joint Stiffness (ankle); No Gait Disturbance, No Joint Pain, No Joint Swelling, No Muscle Pain, No Muscular Weakness, No Pain In:, No Swelling In:, No Other Neurological: No Behavorial Changes, No Bowel/Bladder ControlChng, No Confusion, No Dizziness, No Gait Disturbance, No Headaches, No Impaired Coord/balance, No Memory Loss, No Numbness/Tingling, No Seizures, No Speech Problems, No Tremors, No Visual Changes, No Weakness, No Other Skin: No Dry Skin, No Eczema, No Hair Changes, No Lumps, No Mole Changes, No Mottling, No Nail Changes, No Pruritus, No Rash, No Skin Lesion Changes, No Other, No Acne Physical Exam General: Alert, Oriented X3, Cooperative, mild distress HEENT: Atraumatic, PERRLA, Other Lungs: Clear to auscultation Heart: S1S2, RRR, other (tachy) Abdomen: Soft (obese, nt) Rectal Exam: not examined Extremities: No edema Skin: No rashes Neuro: Normal speech, Normal tone, Cranial nerves 3-12 NL Psych/Mental Status: Mental status NL, Mood NL Vitals Vitals Vital Signs Date Time Temp Pulse Resp B/P (MAP) Pulse Ox O2 Delivery O2 Flow Rate FiO2 08/30/20 20:25 Nasal Cannula 5.0 08/30/20 19:15 94 23 143/80 (101) 96 08/30/20 12:48 98.7 98.7 Labs Labs Laboratory Tests Test 08/30/20 13:04 White Blood Count 9.8 x10^3/uL (4.0-11.0) Red Blood Count 5.04 x10^6/uL (4.30-5.70) Hemoglobin 15.8 g/dL (13.0-17.5) Hematocrit 46.4 % (39.0-53.0) Mean Corpuscular Volume 92 fL (79-100) Mean Corpuscular Hemoglobin 31 pg (25-35) Mean Corpuscular Hemoglobin Concent 34 g/dL (31-37) Red Cell Distribution Width 13.9 % (11.5-14.5) Platelet Count 189 x10^3/uL (140-400) Neutrophils (%) (Auto) 81 % (31-73) Lymphocytes (%) (Auto) 14 % (24-48) Monocytes (%) (Auto) 5 % (0-9) Eosinophils (%) (Auto) 1 % (0-3) Basophils (%) (Auto) 0 % (0-3) Neutrophils # (Auto) 7.9 x10^3/uL (1.8-7.7) Lymphocytes # (Auto) 1.3 x10^3/uL (1.0-4.8) Monocytes # (Auto) 0.5 x10^3/uL (0.0-1.1) Eosinophils # (Auto) 0.1 x10^3/uL (0.0-0.7) Basophils # (Auto) 0.0 x10^3/uL (0.0-0.2) Sodium Level 136 mmol/L (136-145) Potassium Level 3.8 mmol/L (3.5-5.1) Chloride Level 99 mmol/L (98-107) Carbon Dioxide Level 26 mmol/L (21-32) Anion Gap 11 (6-14) Blood Urea Nitrogen 15 mg/dL (8-26) Creatinine 1.3 mg/dL (0.7-1.3) Estimated GFR (Cockcroft-Gault) 55.8 BUN/Creatinine Ratio 12 (6-20) Glucose Level 142 mg/dL (70-99) Calcium Level 10.1 mg/dL (8.5-10.1) Total Bilirubin 0.5 mg/dL (0.2-1.0) Aspartate Amino Transf (AST/SGOT) 28 U/L (15-37) Alanine Aminotransferase (ALT/SGPT) 55 U/L (16-63) Alkaline Phosphatase 86 U/L (46-116) Troponin I Quantitative 0.049 ng/mL (0.000-0.055) TV-Uaw-L-Type Natriuretic Peptide 424 pg/mL (0-124) Total Protein 8.2 g/dL (6.4-8.2) Albumin 3.4 g/dL (3.4-5.0) Albumin/Globulin Ratio 0.7 (1.0-1.7) Laboratory Tests Test 08/30/20 13:04 White Blood Count 9.8 x10^3/uL (4.0-11.0) Red Blood Count 5.04 x10^6/uL (4.30-5.70) Hemoglobin 15.8 g/dL (13.0-17.5) Hematocrit 46.4 % (39.0-53.0) Mean Corpuscular Volume 92 fL (79-100) Mean Corpuscular Hemoglobin 31 pg (25-35) Mean Corpuscular Hemoglobin Concent 34 g/dL (31-37) Red Cell Distribution Width 13.9 % (11.5-14.5) Platelet Count 189 x10^3/uL (140-400) Neutrophils (%) (Auto) 81 % (31-73) Lymphocytes (%) (Auto) 14 % (24-48) Monocytes (%) (Auto) 5 % (0-9) Eosinophils (%) (Auto) 1 % (0-3) Basophils (%) (Auto) 0 % (0-3) Neutrophils # (Auto) 7.9 x10^3/uL (1.8-7.7) Lymphocytes # (Auto) 1.3 x10^3/uL (1.0-4.8) Monocytes # (Auto) 0.5 x10^3/uL (0.0-1.1) Eosinophils # (Auto) 0.1 x10^3/uL (0.0-0.7) Basophils # (Auto) 0.0 x10^3/uL (0.0-0.2) Sodium Level 136 mmol/L (136-145) Potassium Level 3.8 mmol/L (3.5-5.1) Chloride Level 99 mmol/L (98-107) Carbon Dioxide Level 26 mmol/L (21-32) Anion Gap 11 (6-14) Blood Urea Nitrogen 15 mg/dL (8-26) Creatinine 1.3 mg/dL (0.7-1.3) Estimated GFR (Cockcroft-Gault) 55.8 BUN/Creatinine Ratio 12 (6-20) Glucose Level 142 mg/dL (70-99) Calcium Level 10.1 mg/dL (8.5-10.1) Total Bilirubin 0.5 mg/dL (0.2-1.0) Aspartate Amino Transf (AST/SGOT) 28 U/L (15-37) Alanine Aminotransferase (ALT/SGPT) 55 U/L (16-63) Alkaline Phosphatase 86 U/L (46-116) Troponin I Quantitative 0.049 ng/mL (0.000-0.055) ZD-Dhc-V-Type Natriuretic Peptide 424 pg/mL (0-124) Total Protein 8.2 g/dL (6.4-8.2) Albumin 3.4 g/dL (3.4-5.0) Albumin/Globulin Ratio 0.7 (1.0-1.7) VTE Prophylaxis Ordered VTE Prophylaxis Devices: Yes VTE Pharmacological Prophylaxi: Yes Assessment/Plan Assessment/Plan acute hypoxic respiratory failure large subseg Pulmonary embolism, provoked, recent left ankle fracture, healing, wearing boot as he should Morbid obesity, BMI 46, he has a plan to change, family is doing Noom. htn, hyperlipids, his primary care is Dr. Eleni Eric Justifications for Admission Other Justification ALEXUS LO MD Aug 30, 2020 21:13
--- NOTE | 2020-08-30 21:37 | NUR ---
Patient admitted to [address] [place] [address] at 1930 for bilateral pulmonary embolism. Patient denies shortness of breath. Lung sounds are clear to auscultation, O2 sat is 94% on 5 liters of oxygen. Patient oriented to room, call light, and hospital policy regarding no visitors. Patient verbalizes understanding. RN will continue to monitor
--- NOTE | 2020-08-30 22:30 | NUR ---
Surgical incisions assessed. Moderate amount of dried, old blood present on lateral leg and medial ankle incision sites. Dressing change performed to both sites using wound saline wash to removed old dressing. Medial ankle steri strips remain in place. Left lateral leg steri-strips replaced. Non adherent pad placed on medial ankle; ABD pad placed on left lateral leg. Both areas trey wrapped, stockinette placed, surgical boot placed back on patient's left foot.
[2020-08-30 23:00] VITALS: BP 132/63
[2020-08-31 03:00] VITALS: BP 144/79
[2020-08-31 07:46] VITALS: BP 151/80
[2020-08-31 11:00] VITALS: BP 168/94
--- NOTE | 2020-08-31 11:19 | PDOC ---
[facility] PROGRESS NOTE Date of Service DOS: DATE: 08/31/20 TIME: 11:18 Chief Complaint Chief Complaint acute hypoxic respiratory failure -will need urgent echocardiogram. Continue Lovenox for the next 48 hours and will transition to Eliquis at that point. large subseg Pulmonary embolism, provoked, recent left ankle fracture, healing, wearing boot as he should Morbid obesity, BMI 46, he has a plan to change, JESSIKA on CPAP htn, hyperlipids, his primary care is Dr. Eleni Eric History of Present Illness History of Present Illness Demar is a 65-year-old male admit for progressive shortness of air over the past 3 days. He was in denial that he had a problem, but was checking his pulse ox, as he is lo COVID research study, was short of breath yesterday, and Sa02 was 89% then, and today he had chest pain, and was worried and called EMS. Sa02 in the field was 80%. He had ankle surgery after a fall on the ice, August 07 of this year and he had been progressing well up until the previous 3 days. he feels better after SQ lovenox, and he had substernal chest heaviness and pain that is now better. No fever or cough. He has been tested for COVID 4 times recently, for he ankle and mult times for the research study he is in. He also denies any new sick contacts. 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 he spent 9 years in the [employer] as a young man Now 93% on 5 L nasal cannula oxygen. Still tachycardic. Overall is feeling a little bit better. Some pain in his left leg. [place] better after shower. Afebrile. Notes he is in a COVID-19 drug trial and was tested negative multiple times Vitals/I&O Vitals/I&O: Vital Signs Date Time Temp Pulse Resp B/P (MAP) Pulse Ox O2 Delivery O2 Flow Rate FiO2 08/31/20 08:30 Nasal Cannula 5.0 08/31/20 07:46 98.2 96 20 151/80 (103) 94 98.2 I & O 08/30/20 08/30/20 08/31/20 15:00 23:00 07:00 Intake Total 1150 ml Output Total 300 ml 700 ml Balance 850 ml -700 ml Physical Exam General: Alert, Oriented X3, Cooperative, mild distress Lungs: Clear Abdomen: Soft (obese, nt) Extremities: No edema Skin: No rashes Labs Labs: Laboratory Tests Test 08/30/20 13:04 White Blood Count 9.8 x10^3/uL (4.0-11.0) Red Blood Count 5.04 x10^6/uL (4.30-5.70) Hemoglobin 15.8 g/dL (13.0-17.5) Hematocrit 46.4 % (39.0-53.0) Mean Corpuscular Volume 92 fL (79-100) Mean Corpuscular Hemoglobin 31 pg (25-35) Mean Corpuscular Hemoglobin Concent 34 g/dL (31-37) Red Cell Distribution Width 13.9 % (11.5-14.5) Platelet Count 189 x10^3/uL (140-400) Neutrophils (%) (Auto) 81 % (31-73) Lymphocytes (%) (Auto) 14 % (24-48) Monocytes (%) (Auto) 5 % (0-9) Eosinophils (%) (Auto) 1 % (0-3) Basophils (%) (Auto) 0 % (0-3) Neutrophils # (Auto) 7.9 x10^3/uL (1.8-7.7) Lymphocytes # (Auto) 1.3 x10^3/uL (1.0-4.8) Monocytes # (Auto) 0.5 x10^3/uL (0.0-1.1) Eosinophils # (Auto) 0.1 x10^3/uL (0.0-0.7) Basophils # (Auto) 0.0 x10^3/uL (0.0-0.2) Sodium Level 136 mmol/L (136-145) Potassium Level 3.8 mmol/L (3.5-5.1) Chloride Level 99 mmol/L (98-107) Carbon Dioxide Level 26 mmol/L (21-32) Anion Gap 11 (6-14) Blood Urea Nitrogen 15 mg/dL (8-26) Creatinine 1.3 mg/dL (0.7-1.3) Estimated GFR (Cockcroft-Gault) 55.8 BUN/Creatinine Ratio 12 (6-20) Glucose Level 142 mg/dL (70-99) Calcium Level 10.1 mg/dL (8.5-10.1) Total Bilirubin 0.5 mg/dL (0.2-1.0) Aspartate Amino Transf (AST/SGOT) 28 U/L (15-37) Alanine Aminotransferase (ALT/SGPT) 55 U/L (16-63) Alkaline Phosphatase 86 U/L (46-116) Troponin I Quantitative 0.049 ng/mL (0.000-0.055) BV-Krl-D-Type Natriuretic Peptide 424 pg/mL (0-124) Total Protein 8.2 g/dL (6.4-8.2) Albumin 3.4 g/dL (3.4-5.0) Albumin/Globulin Ratio 0.7 (1.0-1.7) Assessment and Plan Assessmemt and Plan Problems Medical Problems: (1) Hypoxemia Status: Acute (2) Pulmonary emboli Status: Acute Comment Review of Relevant I have reviewed the following items suzanna (where applicable) has been applied. Medications: Current Medications Medications (Trade) Dose Ordered Sig/Sanna Route PRN Reason Start Time Stop Time Status Last Admin Dose Admin Sodium Chloride 1,000 ml @ 1,000 mls/hr Q1H IV 08/30/20 13:00 08/30/20 13:59 DC 08/30/20 14:26 Iohexol (Omnipaque 350 Mg/ml) 100 ml 1X ONCE IV 08/30/20 14:15 08/30/20 14:16 DC 08/30/20 14:35 Enoxaparin Sodium (Lovenox 150mg Syringe) 150 mg 1X ONCE SQ 08/30/20 14:45 08/30/20 14:46 DC 08/30/20 15:09 Levofloxacin/ Dextrose 150 ml @ 100 mls/hr 1X ONCE IV 08/30/20 15:00 08/30/20 16:29 DC 08/30/20 15:07 Enoxaparin Sodium (Lovenox 150mg Syringe) 150 mg BID SQ 08/31/20 09:00 08/31/20 08:55 Justifications for Admission Other Justification GENIE RETANA MD Aug 31, 2020 11:19
[2020-08-31] MEDS: PANTOPRAZOLE 40 MG TABLET.DR. PO SCH (13:57)
[2020-08-31] MEDS: LISINOPRIL 20 MG TABLET PO SCH (13:57)
[2020-08-31] MEDS: hydroCHLOROthiazide 25 MG TABLET PO SCH (13:57)
[2020-08-31] MEDS: ATORVASTATIN CALCIUM 10 MG TABLET. PO SCH (13:57)
[2020-08-31] MEDS: THIAMINE 100 MG TABLET. PO SCH (13:57)
[2020-08-31] MEDS ORDERED: PERFLUTREN PROTEIN-A MICROSPHR 0.22 MG/ML 3 ML VIAL. IV ONE ×2 (15:18→15:30)
[2020-08-31 15:59] VITALS: BP 173/72
--- NOTE | 2020-08-31 16:29 | NUR ---
SW following for discharge planning. Spoke with RN and reviewed chart. Pt ABDULKADIR negative, 4l 02, cardiac diet, PO meds. SW following. Addendum: 09/03/20 at 1000 by TOOTIE SOW SW Pt transferred to . No further needs from this SW.
--- NOTE | 2020-08-31 16:52 | RAD ---
XR EXAM OF ANKLE_LEFT 2V History: Reason: previous fracture, ORIF follow up,670 / Spl. Instructions: / History: Technique: 2 views left ankle. Comparison: August 20, 2020 Findings: Internal fixation distal fibular and medial malleolus fractures. Unchanged alignment. Plantar calcane al spur. Impression: 1. Internal fixation left distal fibula and medial malleolus fractures, unchanged alignment. Electronically signed by: Miller Kidd DO (08/31/2020 4:50 PM) LELA
--- NOTE | 2020-08-31 17:52 | CARD ---
MR#: [id number] Date of Study: 08/31/2020 Ordering Physician: GENIE RETANA, Referring Physician: GENIE RETAAN, Tech: [facility] APPROVED REPORT EXAM: Two-dimensional and M-mode echocardiogram with Doppler and color Doppler. Other Information Quality : Technically LimitedHR: 89bpm Rhythm : NSR INDICATION Dyspnea Echo Enhancing Agent Indication: Endocardial border delineation Agent/Amount Used: Optison 3mL RISK FACTORS Hypertension Obesity 2D DIMENSIONS RVDd3.6 (2.9-3.5cm)Left Atrium(2D)4.0 (1.6-4.0cm) IVSd1.0 (0.7-1.1cm)Aortic Root(2D)3.1 (2.0-3.7cm) LVDd4.3 (3.9-5.9cm)LVOT Diameter2.5 (1.8-2.4cm) PWd1.1 (0.7-1.1cm)LVDs2.5 (2.5-4.0cm) FS (%) 42.4 %SV61.3 ml Aortic Valve AoV Peak Ziyad.209.8cm/sAoV VTI29.9cm AO Peak GR.17.6mmHgLVOT Peak Ziyad.136.9cm/s AO Mean GR.8mmHgAVA (VMAX)3.17cm2 Mitral Valve MV E [place]66.9cm/sMV DECEL MSST782ha MV A Ttswaibt222.0cm/sE/A Ratio0.7 Pulmonary Valve PV Peak Dedjvtkw81.3cm/s Tricuspid Valve TR P. Ltctxsby491ca/sTR Peak Gr.21mmHg LEFT VENTRICLE The left ventricle is normal size. There is normal left ventricular wall thickness. The left ventricu lar systolic function is normal and the ejection fraction is within normal range. Estimated ejection fraction 60-65% There is normal LV segmental wall motion. The left ventricular diastolic function an d filling is normal for age. RIGHT VENTRICLE The right ventricle is normal size. There is normal right ventricular wall thickness. The right ventr icular systolic function is normal. ATRIA The left atrium size is normal. The right atrium size is normal. The interatrial septum is intact wit h no evidence for an atrial septal defect or patent foramen ovale as noted on 2-D or Doppler imaging. AORTIC VALVE The aortic valve is normal in structure and function. Doppler and Color Flow revealed no significant aortic regurgitation. There is no significant aortic valvular stenosis. MITRAL VALVE The mitral valve is normal in structure and function. There is no evidence of mitral valve prolapse. There is no mitral valve stenosis. Doppler and Color Flow revealed no mitral valve regurgitation note d. TRICUSPID VALVE The tricuspid valve is normal in structure and function. Doppler and Color Flow revealed trace tricus pid regurgitation. Estimated PAP 25 mmHg. There is no tricuspid valve stenosis. GREAT VESSELS The aortic root is normal in size. The ascending aorta is normal in size. The IVC is normal in size a nd collapses >50% with inspiration. PERICARDIAL EFFUSION There is no evidence of significant pericardial effusion. Critical Notification Critical Value: No <Conclusion> The left ventricle is normal size. The left ventricular systolic function is normal and the ejection fraction is within normal range. Estimated ejection fraction 60-65% Doppler and Color Flow revealed no significant aortic regurgitation. There is no significant aortic valvular stenosis. Doppler and Color Flow revealed no mitral valve regurgitation noted. Doppler and Color Flow revealed trace tricuspid regurgitation. Estimated PAP 25 mmHg. Signed by : Keyur Urias MD Electronically Approved : 08/31/2020 17:52:22
[2020-08-31 19:00] VITALS: BP 146/74
[2020-08-31 23:00] VITALS: BP 123/63
[2020-09-01 03:00] VITALS: BP 133/75
[2020-09-01 07:00] VITALS: BP 132/77
[2020-09-01] MEDS: PANTOPRAZOLE 40 MG TABLET.DR. PO SCH (07:38)
--- NOTE | 2020-09-01 08:41 | PDOC ---
PROGRESS NOTES Date of Service DATE: 09/01/20 TIME: 08:37 Subjective Subjective Problems overnight: Raf reports ongoing shortness of breath although it is significantly improved since his presentation to the hospital. Regarding his left ankle he is getting around with a knee scooter Objective Vital Signs Vital Signs Date Time Temp Pulse Resp B/P (MAP) Pulse Ox O2 Delivery O2 Flow Rate FiO2 09/01/20 07:51 Nasal Cannula 5.0 09/01/20 07:00 96.8 81 18 132/77 (95) 97 96.8 Physical Exam Both medial and lateral incisions are well-healed. He has Steri-Strips reinforcing which remain intact distal neurovascular status intact no instability to the ankle and terminal dorsiflexion and plantar flexion are mildly limited as expected Labs Laboratory Tests Test 08/30/20 13:04 08/30/20 15:10 White Blood Count 9.8 x10^3/uL (4.0-11.0) Red Blood Count 5.04 x10^6/uL (4.30-5.70) Hemoglobin 15.8 g/dL (13.0-17.5) Hematocrit 46.4 % (39.0-53.0) Mean Corpuscular Volume 92 fL (79-100) Mean Corpuscular Hemoglobin 31 pg (25-35) Mean Corpuscular Hemoglobin Concent 34 g/dL (31-37) Red Cell Distribution Width 13.9 % (11.5-14.5) Platelet Count 189 x10^3/uL (140-400) Neutrophils (%) (Auto) 81 % (31-73) Lymphocytes (%) (Auto) 14 % (24-48) Monocytes (%) (Auto) 5 % (0-9) Eosinophils (%) (Auto) 1 % (0-3) Basophils (%) (Auto) 0 % (0-3) Neutrophils # (Auto) 7.9 x10^3/uL (1.8-7.7) Lymphocytes # (Auto) 1.3 x10^3/uL (1.0-4.8) Monocytes # (Auto) 0.5 x10^3/uL (0.0-1.1) Eosinophils # (Auto) 0.1 x10^3/uL (0.0-0.7) Basophils # (Auto) 0.0 x10^3/uL (0.0-0.2) Sodium Level 136 mmol/L (136-145) Potassium Level 3.8 mmol/L (3.5-5.1) Chloride Level 99 mmol/L (98-107) Carbon Dioxide Level 26 mmol/L (21-32) Anion Gap 11 (6-14) Blood Urea Nitrogen 15 mg/dL (8-26) Creatinine 1.3 mg/dL (0.7-1.3) Estimated GFR (Cockcroft-Gault) 55.8 BUN/Creatinine Ratio 12 (6-20) Glucose Level 142 mg/dL (70-99) Calcium Level 10.1 mg/dL (8.5-10.1) Total Bilirubin 0.5 mg/dL (0.2-1.0) Aspartate Amino Transf (AST/SGOT) 28 U/L (15-37) Alanine Aminotransferase (ALT/SGPT) 55 U/L (16-63) Alkaline Phosphatase 86 U/L (46-116) Troponin I Quantitative 0.049 ng/mL (0.000-0.055) TY-Epx-G-Type Natriuretic Peptide 424 pg/mL (0-124) Total Protein 8.2 g/dL (6.4-8.2) Albumin 3.4 g/dL (3.4-5.0) Albumin/Globulin Ratio 0.7 (1.0-1.7) Coronavirus (PCR) Not detected (Not Detected) Imaging X-rays show anatomic alignment of the ankle joint mortise with intact plate and screw hardware over the distal fibula and cannulated screw fixation of the medial malleolus, both in acceptable position and showing some early healing changes Assessment Assessment About 4 weeks status post ORIF left bimalleolar ankle fracture Plan Plan of Care He can toe-touch weight-bear (put the weight of the leg on the floor but not additional body weight) when he is transferring or using a walker or crutches. Since he is mainly using the knee scooter this is less applicable. Medical management for anticoagulation as indicated. From an orthopedic standpoint he is stable with toe-touch weightbearing and he can continue that for the next 2 weeks with an orthopedic clinic visit to follow at that time Justicifation of Admission Dx: Justifications for Admission: Justification of Admission Dx: N/A JAMES YOU MD Sep 01, 2020 08:41
--- NOTE | 2020-09-01 08:47 | PDOC ---
[employer] [facility] PROGRESS NOTE Date of Service DOS: DATE: 09/01/20 TIME: 08:47 Chief Complaint Chief Complaint acute hypoxic respiratory failure - likely secondary to large PE. Will have 6 minute walk vs ABG prior to d/c to assess for degree of mismatch large subseg Pulmonary embolism, provoked - eliquis 3 months then check for d dimer elevation to plan d/c of this therapy. if not affordable will change to warfarin tonight. recent left ankle fracture, healing, wearing boot as he should Morbid obesity, BMI 46, he has a plan to change, JESSIKA on CPAP htn, hyperlipids, his primary care is Dr. Eleni Eric History of Present Illness History of Present Illness Demar is a 65-year-old male admit for progressive shortness of air over the past 3 days. He was in denial that he had a problem, but was checking his pulse ox, as he is lo COVID research study, was short of breath yesterday, and Sa02 was 89% then, and today he had chest pain, and was worried and called EMS. Sa02 in the field was 80%. He had ankle surgery after a fall on the ice, August 07 of this year and he had been progressing well up until the previous 3 days. he feels better after SQ lovenox, and he had substernal chest heaviness and pain that is now better. No fever or cough. He has been tested for COVID 4 times recently, for he ankle and mult times for the research study he is in. He also denies any new sick contacts. 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 he spent 9 years in [employer] as a young man 08/31: Now 93% on 5 L nasal cannula oxygen. Still tachycardic. Overall is feeling a little bit better. Some pain in his left leg. [place] better after shower. Afebrile. Notes he is in a COVID-19 drug trial and was tested negative multiple times COVID-19 returned negative. No signs of right heart strain on echocardiogram. Ankle x-ray looks good. Plan to transition to Eliquis tonight and ensure that its affordable. We will get 6-minute walk tomorrow morning prior to discharge. Vitals/I&O Vitals/I&O: Vital Signs Date Time Temp Pulse Resp B/P (MAP) Pulse Ox O2 Delivery O2 Flow Rate FiO2 09/01/20 07:51 Nasal Cannula 5.0 09/01/20 07:00 96.8 81 18 132/77 (95) 97 96.8 I & O 08/31/20 08/31/20 09/01/20 15:00 23:00 07:00 Intake Total 340 ml 900 ml 400 ml Output Total 1 ml Balance 339 ml 900 ml 400 ml Physical Exam General: Alert, Oriented X3, Cooperative, mild distress Lungs: Clear Abdomen: Soft (obese, nt) Extremities: No edema Skin: No rashes Assessment and Plan Assessmemt and Plan Problems Medical Problems: (1) Hypoxemia Status: Acute (2) Pulmonary emboli Status: Acute Comment Review of Relevant I have reviewed the following items suzanna (where applicable) has been applied. Medications: Current Medications Medications (Trade) Dose Ordered Sig/Sanna Route PRN Reason Start Time Stop Time Status Last Admin Dose Admin Enoxaparin Sodium (Lovenox 150mg Syringe) 150 mg BID SQ 08/31/20 09:00 08/31/20 22:06 Hydrochlorothiazide (Hydrodiuril) 6.25 mg DAILY PO 08/31/20 13:00 08/31/20 13:57 Lisinopril (Prinivil) 20 mg DAILY PO 08/31/20 13:00 08/31/20 13:57 Thiamine Mononitrate (Vitamin B-1) 100 mg DAILY PO 08/31/20 13:00 08/31/20 13:57 Atorvastatin Calcium (Lipitor) 5 mg DAILY PO 08/31/20 13:00 08/31/20 13:57 Pantoprazole Sodium (Protonix) 40 mg DAILYAC PO 08/31/20 13:00 09/01/20 07:38 Justifications for Admission Other Justification GENIE RETANA MD Sep 01, 2020 08:47
[2020-09-01] MEDS: ATORVASTATIN CALCIUM 10 MG TABLET. PO SCH (09:22)
[2020-09-01] MEDS: THIAMINE 100 MG TABLET. PO SCH (09:22)
[2020-09-01] MEDS: hydroCHLOROthiazide 25 MG TABLET PO SCH (09:22)
[2020-09-01] MEDS: LISINOPRIL 20 MG TABLET PO SCH (09:23)
[2020-09-01 11:00] VITALS: BP 142/82
[2020-09-01] MEDS ORDERED: APIX5TAB PO (14:38)
[2020-09-01 15:00] VITALS: BP 153/72
--- NOTE | 2020-09-01 16:41 | NUR ---
Pt transferred to room 206 by wheelchair at approx 1640, belongings sent with pt. Report given to JACEY Britton. Meal tray ordered to be sent to room 206.
[2020-09-01 19:21] VITALS: BP 134/80
[2020-09-01] MEDS: APIXABAN 5 MG TABLET. PO SCH (21:53)
[2020-09-01 22:37] VITALS: BP 144/78
[2020-09-02 02:55] VITALS: BP 215/88
[2020-09-02 06:41] VITALS: BP 151/88
[2020-09-02] MEDS: THIAMINE 100 MG TABLET. PO SCH (08:10)
[2020-09-02] MEDS: APIXABAN 5 MG TABLET. PO SCH ×2 (08:11→21:37)
[2020-09-02] MEDS: LISINOPRIL 20 MG TABLET PO SCH (08:11)
[2020-09-02] MEDS: PANTOPRAZOLE 40 MG TABLET.DR. PO SCH (08:11)
[2020-09-02] MEDS: hydroCHLOROthiazide 25 MG TABLET PO SCH (08:11)
[2020-09-02] MEDS: ATORVASTATIN CALCIUM 10 MG TABLET. PO SCH (08:11)
--- NOTE | 2020-09-02 09:05 | PDOC ---
[employer] [facility] PROGRESS NOTE Date of Service DOS: DATE: 09/02/20 TIME: 08:59 Chief Complaint Chief Complaint acute hypoxic respiratory failure - likely secondary to large PE. Will have 6 minute walk vs ABG prior to d/c to assess for degree of mismatch large subseg Pulmonary embolism, provoked - eliquis 3 months then check for d dimer elevation to plan d/c of this therapy. if not affordable will change to warfarin tonight. recent left ankle fracture, healing, wearing boot as he should Morbid obesity, BMI 46, he has a plan to change, JESSIKA on CPAP htn, hyperlipids, his primary care is Dr. Eleni Eric History of Present Illness History of Present Illness Demar is a 65-year-old male admit for progressive shortness of air over the past 3 days. He was in denial that he had a problem, but was checking his pulse ox, as he is lo COVID research study, was short of breath yesterday, and Sa02 was 89% then, and today he had chest pain, and was worried and called EMS. Sa02 in the field was 80%. He had ankle surgery after a fall on the ice, August 07 of this year and he had been progressing well up until the previous 3 days. he feels better after SQ lovenox, and he had substernal chest heaviness and pain that is now better. No fever or cough. He has been tested for COVID 4 times recently, for he ankle and mult times for the research study he is in. He also denies any new sick contacts. 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 he spent 9 years in the [employer] as a young man 08/31: Now 93% on 5 L nasal cannula oxygen. Still tachycardic. Overall is feeling a little bit better. Some pain in his left leg. [place] better after shower. Afebrile. Notes he is in a COVID-19 drug trial and was tested negative multiple times 09/01: COVID-19 returned negative. No signs of right heart strain on echocardiogram. Ankle x-ray looks good. Plan to transition to Eliquis tonight and ensure that its affordable. We will get 6-minute walk tomorrow morning prior to discharge. 09/02: Patient seen and evaluated, currently breathing on 4 L nasal cannula. Plan for 6-minute walk today and discharged on home oxygen. He will need Eliquis for 3 months. We will have social science instructor help with providing as any free samples as possible. Vitals/I&O Vitals/I&O: Vital Signs Date Time Temp Pulse Resp B/P (MAP) Pulse Ox O2 Delivery O2 Flow Rate FiO2 09/02/20 08:11 69 151/88 09/02/20 07:24 Nasal Cannula 4.0 09/02/20 06:41 98.0 20 97 98.0 I & O 09/01/20 09/01/20 09/02/20 15:00 23:00 07:00 Intake Total 540 ml 600 ml 0 ml Output Total 350 ml 400 ml 200 ml Balance 190 ml 200 ml -200 ml Physical Exam General: Alert, Oriented X3, Cooperative, mild distress Lungs: Clear Abdomen: Soft (obese, nt) Extremities: No edema Skin: No rashes Assessment and Plan Assessmemt and Plan Problems Medical Problems: (1) Hypoxemia Status: Acute (2) Pulmonary emboli Status: Acute Comment Review of Relevant I have reviewed the following items suzanna (where applicable) has been applied. Medications: Current Medications Medications (Trade) Dose Ordered Sig/Sanna Route PRN Reason Start Time Stop Time Status Last Admin Dose Admin Apixaban (Eliquis) 10 mg BID PO 09/01/20 21:00 09/08/20 09:01 09/02/20 08:11 Justifications for Admission Other Justification TERRY MOLINA MD Sep 02, 2020 09:05
[2020-09-02 10:42] VITALS: BP 145/70
[2020-09-02 14:45] VITALS: BP 156/88
[2020-09-02 19:21] VITALS: BP 155/80
[2020-09-02 23:21] VITALS: BP 181/82
[2020-09-03 03:10] VITALS: BP 158/86
[2020-09-03 07:00] VITALS: BP 193/98
[2020-09-03] MEDS ORDERED: ANTI-COAG MONITOR BY PHARMACY. MC PRN (08:15)
--- NOTE | 2020-09-03 08:42 | PDOC ---
PROGRESS NOTES Date of Service: DATE: 09/03/20 TIME: 08:42 Chief Complaint Chief Complaint impression acute hypoxic respiratory failure - likely secondary to large PE. Will have 6 minute walk vs ABG prior to d/c to assess for degree of mismatch large subseg Pulmonary embolism, provoked - eliquis 3 months then check for d dimer elevation to plan d/c recent left ankle fracture, healing, wearing boot as he should Morbid obesity, BMI 46, he has a plan to change, JESSIKA on CPAP htn, hyperlipids, pulmonary embolus in all 5 lobes. Clot burden is moderate. There is evidence of right ventricular strain. PLAN primary care is Dr. Eleni Eric 09-03 CONSULT PULM MEDICINE 12 LEAD EKG QTC =444 CARDS CONSULT History of Present Illness History of Present Illness Demar is a 65-year-old male admit for progressive shortness of air over the past 3 days. He was in denial that he had a problem, but was checking his pulse ox, as he is lo COVID research study, was short of breath yesterday, and Sa02 was 89% then, and today he had chest pain, and was worried and called EMS. Sa02 in the field was 80%. He had ankle surgery after a fall on the ice, August 07 of this year and he had been progressing well up until the previous 3 days. he feels better after SQ lovenox, and he had substernal chest heaviness and pain that is now better. No fever or cough. He has been tested for COVID 4 times recently, for he ankle and mult times for the research study he is in. denies any new sick contacts. 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 he spent 9 years in the [employer] as a young man 08/31: Now 93% on 5 L nasal cannula oxygen. Still tachycardic. Overall is feeling a little bit better. Some pain in his left leg. [place] better after shower. Afebrile. Notes he is in a COVID-19 drug trial and was tested negative multiple times 09/01: COVID-19 returned negative. No signs of right heart strain on echocardiogram. Ankle x-ray looks good. Plan to transition to Eliquis tonight and ensure that its affordable. We will get 6-minute walk tomorrow morning prior to discharge. 09/02: Patient seen and evaluated, currently breathing on 4 L nasal cannula. Plan for 6-minute walk today and discharged on home oxygen. He will need Eliquis for 3 months. We will have social and political studies professor help with providing as any free samples as possible. 09-03 VENOUS DOPPLERS BILATERAL LEGS, PULM CONSULT Vitals Vitals Vital Signs Date Time Temp Pulse Resp B/P (MAP) Pulse Ox O2 Delivery O2 Flow Rate FiO2 09/03/20 03:10 98.2 70 18 158/86 (110) 92 Nasal Cannula 2.0 98.2 Physical Exam General: Alert, Oriented X3, Cooperative, No acute distress Heart: Regular rate Lungs: Clear Abdomen: Normal bowel sounds, Soft (obese, nt), No tenderness Extremities: No edema Skin: No rashes Labs LABS AORTIC VALVE The aortic valve is normal in structure and function. Doppler and Color Flow revealed no significant aortic regurgitation. There is no significant aortic valvular stenosis. MITRAL VALVE The mitral valve is normal in structure and function. There is no evidence of mitral valve prolapse. There is no mitral valve stenosis. Doppler and Color Flow revealed no mitral valve regurgitation noted. TRICUSPID VALVE The tricuspid valve is normal in structure and function. Doppler and Color Flow revealed trace tricuspid regurgitation. Estimated PAP 25 mmHg. There is no tricuspid valve stenosis. GREAT VESSELS The aortic root is normal in size. The ascending aorta is normal in size. The IVC is normal in size and collapses >50% with inspiration. PERICARDIAL EFFUSION There is no evidence of significant pericardial effusion. Critical Notification Critical Value: No <Conclusion> The left ventricle is normal size. The left ventricular systolic function is normal and the ejection fraction is within normal range. Estimated ejection fraction 60-65% Doppler and Color Flow revealed no significant aortic regurgitation. There is no significant aortic valvular stenosis. Doppler and Color Flow revealed no mitral valve regurgitation noted. Doppler and Color Flow revealed trace tricuspid regurgitation. Estimated PAP 25 mmHg. Signed by : Stanislav Urias MD Electronically Approved : 08/31/2020 17:52:22 DICTATED and SIGNED BY: STANISLAV URIAS MD DATE: 08/31/20 [id number] SPEC #: [id number] MEAGHAN: 08/30/201308 STATUS: RES REQ #: [id number] RECD: 08/30/[address]: SHWETA RIVAS DO SOURCE: BLOOD ENTR: 08/30/20-15[address] [facility] DR: MIHIR ERIC MD [facility]: ORDERED: BCULT Procedure Result BLOOD CULTURE Preliminary NO GROWTH AFTER 3 DAYS XR CHEST 1V Clinical Indication: Reason: Pain/shortness of air / Spl. Instructions: / History: Comparison: None. Findings: The cardiomediastinal silhouette is normal. There is right hilar opacity measuring 3.8 cm. Eventration of lateral right hemidiaphragm. Lungs are clear. There is no pneumothorax. No pleural effusion is appreciated. No acute bone abnormality. IMPRESSION: Right hilar opacity may be prominent vasculature or adenopathy or mass. Consider further evaluation with CT. Electronically signed by: Jose Neville MD (08/30/2020 1:51 PM) [facility] DICTATED and SIGNED BY: JOSE NEVILLE MD DATE: 08/30/20 [id number] 0 XR EXAM OF ANKLE_LEFT 2V History: Reason: previous fracture, ORIF follow up,670 / Spl. Instructions: / History: Technique: 2 views left ankle. Comparison: August 20, 2020 Findings: Internal fixation distal fibular and medial malleolus fractures. Unchanged alignment. Plantar calcaneal spur. Impression: 1. Internal fixation left distal fibula and medial malleolus fractures, unchanged alignment. Electronically signed by: Miller Kidd DO (08/31/2020 4:50 PM) [facility] DICTATED and SIGNED BY: MILLER KIDD DO DATE: 08/31/20 [id number] 0 PQRS Compliance Statement: One or more of the following individualized dose reduction techniques were utilized for this examination: 1. Automated exposure control 2. Adjustment of the mA and/or kV according to patient size 3. Use of iterative reconstruction technique CT CHEST WITH CONTRAST, PULMONARY ANGIOGRAM History: Reason: Shortness of air / Comparison: AP chest, earlier same day. Technique: Helical CT of the chest was performed after the administration of 90 cc of Omnipaque 350 intravenous contrast according to PE protocol. Axial and coronal reconstructions were obtained. 3-D MIP images were constructed to better evaluate the pulmonary arteries. Findings: Pulmonary arteries are adequately opacified. There are bilateral pulmonary emboli in all 5 lobes. The most central thrombus is in the distal main pulmonary arteries. There is evidence of right ventricular strain. Calcific aortic valve stenosis. There is no thoracic aortic dissection. Great vessels are normal caliber. Thyroid is symmetric. There is no adenopathy in the chest. Coronary artery disease. Cardiac size is normal, no pericardial effusion. There is no pleural effusion. There is atelectasis in the right lower lobe. Calcified granuloma left upper lobe. Groundglass opacities in the posterior left upper lobe may be infectious/inflammatory, image 57. There is groundglass opacity and patchy consolidation in the superior segment of the left lower lobe. There is probably fatty infiltration of the liver. No acute bone abnormality. IMPRESSION: 1. Study is positive for pulmonary embolus in all 5 lobes. Clot burden is moderate. There is evidence of right ventricular strain. 2. Groundglass opacities and patchy consolidation in the superior segment of the left lower lobe may be pulmonary infarct versus bronchopneumonia. 3. There are a few groundglass nodules in the posterior left upper lobe that are likely infectious/inflammatory. FOR INTERNAL CODING PURPOSES Critical result: Findings discussed with Dr. Rivas in the ED at 08/30/2020 2:51 PM. RESULT CODE: (C) Assessment and Plan Assessmemt and Plan Problems Medical Problems: (1) Hypoxemia Status: Acute (2) Pulmonary emboli Status: Acute Comment Review of Relevant I have reviewed the following items suzanna (where applicable) has been applied. Labs Microbiology 08/30/20 Blood Culture - Preliminary, Resulted NO GROWTH AFTER 3 DAYS Medications Current Medications Sodium Chloride 1,000 ml @ 1,000 mls/hr Q1H IV Last administered on 08/30/20at 14:26; Start 08/30/20 at 13:00; Stop 08/30/20 at 13:59; Status DC Iohexol (Omnipaque 350 Mg/ml) 100 ml 1X ONCE IV Last administered on 08/30/20at 14:35; Start 08/30/20 at 14:15; Stop 08/30/20 at 14:16; Status DC Info (CONTRAST GIVEN -- Rx MONITORING) 1 each PRN DAILY PRN MC SEE COMMENTS; Start 08/30/20 at 14:15; Stop 09/01/20 at 14:14; Status DC Enoxaparin Sodium (Lovenox 150mg Syringe) 150 mg 1X ONCE SQ Last administered on 08/30/20at 15:09; Start 08/30/20 at 14:45; Stop 08/30/20 at 14:46; Status DC Ondansetron HCl (Zofran) 4 mg PRN Q8HRS PRN IV NAUSEA/VOMITING; Start 08/30/20 at 14:45; Stop 08/31/20 at 14:44; Status DC Acetaminophen (Tylenol) 650 mg PRN Q4HRS PRN PO FEVER > 100.3'F; Start 08/30/20 at 14:45; Stop 08/31/20 at 14:44; Status DC Levofloxacin/ Dextrose 150 ml @ 100 mls/hr 1X ONCE IV Last administered on 08/30/20at 15:07; Start 08/30/20 at 15:00; Stop 08/30/20 at 16:29; Status DC Enoxaparin Sodium (Lovenox Per Pharmacy Treatment Dosing) 1 each PRN DAILY PRN MC SEE COMMENTS; Start 08/30/20 at 20:00; Stop 09/01/20 at 15:17; Status DC Enoxaparin Sodium (Lovenox 150mg Syringe) 150 mg BID SQ ; Start 08/30/20 at 20:00; Status Cancel Enoxaparin Sodium (Lovenox 150mg Syringe) 150 mg BID SQ Last administered on 09/01/20at 09:24; Start 08/31/20 at 09:00; Stop 09/01/20 at 15:17; Status DC Hydrochlorothiazide (Hydrodiuril) 6.25 mg DAILY PO Last administered on 09/02/20at 08:11; Start 08/31/20 at 13:00 Lisinopril (Prinivil) 20 mg DAILY PO Last administered on 09/02/20at 08:11; Start 08/31/20 at 13:00 Thiamine Mononitrate (Vitamin B-1) 100 mg DAILY PO Last administered on 09/02/20at 08:10; Start 08/31/20 at 13:00 Atorvastatin Calcium (Lipitor) 5 mg DAILY PO Last administered on 09/02/20at 08:11; Start 08/31/20 at 13:00 Pantoprazole Sodium (Protonix) 40 mg DAILYAC PO Last administered on 09/02/20at 08:11; Start 08/31/20 at 13:00 Perflutren Protein Type A Microsphe (Optison) 0.66 mg STK-MED ONCE IV ; Start 08/31/20 at 15:18; Stop 08/31/20 at 15:18; Status DC Apixaban (Eliquis) 10 mg BID PO Last administered on 09/02/20at 21:37; Start 09/01/20 at 21:00; Stop 09/08/20 at 09:01 Info (Anti-Coagulation Monitoring By Pharmacy) 1 each PRN DAILY PRN MC SEE COMMENTS; Start 09/03/20 at 08:15 Active Scripts Active Eliquis (Apixaban) 5 Mg Tablet 5 Mg PO BID 30 Days Reported Prilosec Otc (Omeprazole Magnesium) 20 Mg Tablet.dr 20 Mg PO DAILY Vitamin B-1 (Thiamine Mononitrate) 100 Mg Tablet 100 Mg PO DAILY Lovastatin 20 Mg Tablet 20 Mg PO DAILY Hydrochlorothiazide Capsule (Hydrochlorothiazide) 12.5 Mg Capsule 6.25 Mg PO DAILY Lisinopril 20 Mg Tablet 20 Mg PO DAILY Vitals/I & O Vital Sign - Last 24 Hours 09/02/20 09/02/20 09/02/20 09/02/20 10:42 14:45 19:21 19:40 Temp 97.6 97.7 98.1 97.6 97.7 98.1 Pulse 77 66 85 Resp 18 18 16 B/P (MAP) 145/70 (95) 156/88 (110) 155/80 (105) Pulse Ox 97 98 95 O2 Delivery Nasal Cannula Nasal Cannula Nasal Cannula Nasal Cannula O2 Flow Rate 3.0 2.0 2.0 2.0 09/02/20 09/03/20 23:21 03:10 Temp 98.2 98.2 98.2 98.2 Pulse 79 70 Resp 20 18 B/P (MAP) 181/82 (115) 158/86 (110) Pulse Ox 96 92 O2 Delivery Nasal Cannula Nasal Cannula O2 Flow Rate 2.0 2.0 Intake and Output 09/02/20 09/02/20 09/03/20 15:00 23:00 07:00 Intake Total 1250 ml 0 ml Output Total 600 ml Balance 650 ml 0 ml Justicifation of Admission Dx: Justifications for Admission: Justification of Admission Dx: N/A BEKAH SHER MD Sep 03, 2020 08:42
[2020-09-03] MEDS: hydroCHLOROthiazide 25 MG TABLET PO SCH (08:54)
[2020-09-03] MEDS: APIXABAN 5 MG TABLET. PO SCH ×2 (08:55→21:28)
[2020-09-03] MEDS: PANTOPRAZOLE 40 MG TABLET.DR. PO SCH (08:55)
[2020-09-03] MEDS: THIAMINE 100 MG TABLET. PO SCH (08:55)
[2020-09-03] MEDS: LISINOPRIL 20 MG TABLET PO SCH ×2 (08:55→21:27)
[2020-09-03] MEDS: ATORVASTATIN CALCIUM 10 MG TABLET. PO SCH (08:56)
--- NOTE | 2020-09-03 10:20 | EKG ---
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
[2020-09-03 11:00] VITALS: BP 143/76
--- NOTE | 2020-09-03 11:20 | RAD ---
EXAMINATION: US BILATERAL LOWEREXTREMITY VENOUS DOPPLER, 09/03/2020 10:33 AM CLINICAL INDICATION: Pulmonary embolism. Post left ankle ORIF COMPARISON: None Available. PROCEDURE: Multiple grayscale, color Doppler and spectral Doppler sonographic images of the bilateral lower extremities were obtained. FINDINGS: There is occlusive thrombus in the distal left popliteal vein and left posterior tibial vei ns. The bilateral common femoral and superficial femoral veins, and right popliteal vein are compress ible, and echolucent with normal flow on color Doppler imaging. The left peroneal and right calf vein s are patent. IMPRESSION: Positive exam for occlusive deep venous thrombosis in the left distal popliteal and poste rior tibial veins. Results discussed with the patient's nurse Janine by Dr. Vaughan at 11:15 am on 09/03/2020. Electronically signed by: Nelly Vaughan MD (09/03/2020 11:17 AM) [id number]
[2020-09-03 11:48] LABS: BASO % 1 % (0-3); EOS # 0.1 x10^3/uL (0.0-0.7); EOS % 2 % (0-3); HEMATOCRIT 43.8 % (39.0-53.0); HEMOGLOBIN 14.5 g/dL (13.0-17.5); LYMPH # 1.7 x10^3/uL (1.0-4.8); LYMPH % 31 % (24-48); MEAN CORPUSCULAR HEMOGLOBIN 30 pg (25-35); MEAN CORPUSCULAR HGB CONC 33 g/dL (31-37); MEAN CORPUSCULAR VOLUME 92 fL (79-100); MONO # 0.4 x10^3/uL (0.0-1.1); MONO % 7 % (0-9); NEUT # 3.3 x10^3/uL (1.8-7.7); NEUT % 60 % (31-73); PLATELET COUNT 162 x10^3/uL (140-400); RED BLOOD COUNT 4.76 x10^6/uL (4.30-5.70); RED CELL DISTRIBUTION WIDTH 13.9 % (11.5-14.5); WHITE BLOOD COUNT 5.4 x10^3/uL (4.0-11.0)
[2020-09-03 11:56] LABS: ALBUMIN 3.1 g/dL (3.4-5.0); ALBUMIN/GLOBULIN RATIO 0.7 (1.0-1.7); CALCIUM 9.6 mg/dL (8.5-10.1); CREATININE 1.3 mg/dL (0.7-1.3); GFR 55.8; POTASSIUM 4.3 mmol/L (3.5-5.1); TOTAL BILIRUBIN 0.5 mg/dL (0.2-1.0); TOTAL PROTEIN 7.7 g/dL (6.4-8.2)
--- NOTE | 2020-09-03 11:58 | CONS ---
DATE OF CONSULTATION: 09/03/2020 REASON FOR CONSULTATION: Abnormal EKG. HISTORY OF PRESENT ILLNESS: The patient is a pleasant 65-year-old man with past medical history as noted below, who presented to the hospital in the setting of worsening dyspnea on exertion. He was diagnosed with a pulmonary embolus in the setting of recent ORIF of the left ankle when he sustained a mechanical fall. He was also found to have a DVT. An EKG was performed this morning, which revealed a prolonged MT interval and minimal QT prolongation and therefore, the Cardiology Service was consulted. At this present time, the patient reports that his dyspnea is much improved and he has been on anticoagulation. He denies any current chest pain, orthopnea, PND, or lower extremity edema. No syncope or palpitations. At home, he is able to perform all activities of daily living and do things such as yard work without any significant limitations. He does not have any prior cardiovascular issues. PAST MEDICAL HISTORY: 1. Hypertension. 2. Dyslipidemia. 3. GERD. 4. Morbid obesity. SOCIAL HISTORY: The patient denies any current alcohol, tobacco or illicit drug use. 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 He is currently living with his brother. ALLERGIES: No known drug allergies. CURRENT CARDIOVASCULAR MEDICATIONS: 1. Lisinopril 20 mg p.o. b.i.d. 2. Eliquis 10 mg p.o. b.i.d. 3. Atorvastatin 5 mg p.o. daily. 4. Hydrochlorothiazide 6.25 mg p.o. daily. PHYSICAL EXAMINATION: VITAL SIGNS: Afebrile, 69, 18, 193/98. GENERAL: He is alert and oriented, in no acute distress. HEAD AND NECK: Unremarkable. CARDIAC: Regular rate and rhythm without murmurs, rubs or gallops. LUNGS: Clear to auscultation bilaterally. ABDOMEN: Obese, protuberant, nontender, nondistended. EXTREMITIES: No clubbing or cyanosis, 2+ radial pulses, 1+ right pedal and posterior tibial pulse. Left leg pulses were not palpable due to being in a cast. NEUROLOGIC: No focal deficits. MUSCULOSKELETAL: Trauma noted. IVC in the left lower extremity. SKIN: No obvious rashes. DIAGNOSTIC STUDIES: Hemoglobin, platelets, creatinine are within normal limits. Troponin is normal. BNP is mildly elevated at 424, given his pulmonary embolus. CTA of the chest performed on 08/30/2020 reveals positive for pulmonary embolus in all 5 lobes with a moderate clot burden. Lower extremity duplex ultrasound reveals deep venous thrombosis in the left distal popliteal and posterior tibial veins. EKG demonstrates sinus rhythm with first degree AV block and nonspecific ST-T wave changes without any obvious evidence of ischemia. IMPRESSION: 1. Abnormal EKG: EKG is only notable for prolonged MT without any obvious QT or ST-T wave changes. 2. Hypertension, currently labile, likely due to his pain in the left leg. 3. Dyslipidemia. 4. Morbid obesity. 5. Positive for pulmonary embolism with left lower extremity deep venous thrombosis in the setting of recent orthopedic surgery. RECOMMENDATIONS: 1. The patient's echocardiogram is grossly unremarkable without any evidence of RV strain. No further cardiovascular testing necessary at this time. Continue Eliquis. 2. We will plan for outpatient followup for management of his blood pressure. Otherwise, continue home medical therapy. Thank you for this consultation. JUAN AGUILAR MD DR: MARU/pawel JOB#: [id number] / [id number]
[2020-09-03 12:02] LABS: PROTHROMBIN TIME PATIENT 15.5 SEC (11.7-14.0)
--- NOTE | 2020-09-03 12:18 | CONS ---
DATE OF CONSULTATION: PULMONARY CONSULTATION ATTENDING PHYSICIAN: Mirna Hair MD. REASON FOR CONSULTATION: Pulmonary embolism. HISTORY OF PRESENT ILLNESS: The patient is a 65-year-old obese male with a BMI of 46. The patient has no significant tobacco history. The patient has open reduction and internal fixation of his left knee on 08/07. The patient states that he has been not much ambulatory since the surgery. The patient was brought into the hospital after he had shortness of breath with minimal activity for the last 3 days. The patient has no COVID symptoms. He said he was COVID negative 4 times recently. The patient underwent a CTA chest, which was reviewed by me. The patient had evidence of pulmonary embolism in all 5 lobes. The patient also had some evidence of right ventricular strain and ground glass opacities and consolidation in the left lower lobe, likely pulmonary infarction. Venous Dopplers have been done in his lower extremities and it is positive for DVT in the left distal popliteal and posterior tibial veins that is likely source of thromboembolic disease. He has no known cancers. He is obese. No family history of thromboembolic disease. PAST MEDICAL HISTORY: Significant for hyperlipidemia, underlying obesity and JESSIKA, on CPAP. PAST SURGICAL HISTORY: Open reduction and internal fixation of left knee on 08/07. SOCIAL HISTORY: Nonsmoker. Drinks on a weekly basis. MEDICATIONS: Reviewed as listed in the [facility]AD including Eliquis. REVIEW OF SYSTEMS: Twelve-point system obtained. Pertinent positives discussed in my history of present illness, otherwise noncontributory. All systems that were negative were reviewed as well. FAMILY HISTORY: Noncontributory to thromboembolic disease. PHYSICAL EXAMINATION: VITAL SIGNS: Reviewed. Blood pressure stable, pulse ox 95% on 2 liters, afebrile. NECK: Supple. LUNGS: Clear. CARDIOVASCULAR: With a regular rate. ABDOMEN: Soft, obese. EXTREMITIES: With soft cast in the left lower extremity. LABORATORY DATA: Reviewed. White cell count 5.4, hemoglobin 14.5 and platelets are 162. BUN 15, creatinine 1.3. IMPRESSION: 1. Dyspnea with acute hypoxic respiratory failure present on admission secondary to acute bilateral pulmonary embolism with infarction involving the left lower lobe. He has evidence of left lower extremity deep venous thrombosis. The risk factors include surgery on 08/07 on his left knee. He has been immobile since then. His underlying obesity is also another contributing factor. There is no family history of thromboembolic disease and there is no history of known cancers. 2. Abnormal CT chest related to thromboembolic disease on all 5 lobes along with left lower lobe pulmonary infarction. Less likely pneumonia. 3. Underlying obesity. 4. Obstructive sleep apnea, on home CPAP with good compliance. RECOMMENDATIONS: 1. Continue with present Eliquis. He will require 3 months of anticoagulation at least. 2. Follow up venous Dopplers and CTA chest in 6 weeks. 3. We will have him follow up in our office. 4. The patient to lose weight. 5. Continue home CPAP. 6. Once he is fully ambulatory and minimizes his future risk for thromboembolic disease, anticoagulation can be stopped in 3 months. 7. Discussed with RN. We will follow along with you. MALENA CARTER MD DR: MICHAEL/nts JOB#: [id number] / [id number]
--- NOTE | 2020-09-03 13:35 | NUR ---
SS following for discharge planning. SS reviewed pt chart and discussed with pt RN. Pt is from home and is currently requiring oxygen at two liters nasal canula. Pt has home CPAP from home. Pulmonology consulted. Pt was current on services with [facility], ; fax [phone]. Six minute walk ordered to assess home oxygen needs. SS will continue to follow for discharge planning.
[2020-09-03 15:00] VITALS: BP 148/70
--- NOTE | 2020-09-03 15:59 | RAD ---
EXAMINATION: US US ABDOMEN COMPLETE CLINICAL HISTORY: Transaminitis TECHNIQUE: Grayscale sonographic imaging of the abdomen obtained with color Doppler imaging and spect ral Doppler analysis as indicated. COMPARISON: None FINDINGS: Pancreas: Not visualized secondary to prominent overlying bowel gas. Liver: - Echotexture: Appears homogeneous, but suboptimally assessed - Echogenicity: Increased, compatible with hepatic steatosis - Surface contour: Smooth - Lesions: None Biliary: No intrahepatic biliary duct dilation. - CBD: mm at the hilum. - Gallbladder: Nondistended, and therefore suboptimally evaluated. No pericholecystic fluid. Spleen: - Craniocaudal length: 12.4 cm. - Lesions: None Right Kidney: - Renal length: 14.3 cm - Parenchyma: Normal parenchymal echogenicity. Normal parenchymal thickness. - Collecting system: No hydronephrosis. - Calculus: No echogenic, shadowing calculus. - Lesion: None Left Kidney: - Renal length: 15.0 cm - Parenchyma: Normal parenchymal echogenicity. Normal parenchymal thickness. - Collecting system: No hydronephrosis. - Calculus: No echogenic, shadowing calculus. - Lesion: None IVC: Poorly visualized. Abdominal Aorta: Poorly visualized. Ascites: None. IMPRESSION: Limited evaluation with multiple poorly visualized or suboptimally evaluated structures as described. Findings compatible with hepatic steatosis. Electronically signed by: Moragn Simon DO (09/03/2020 3:56 PM) [id number]
[2020-09-03 19:00] VITALS: BP 142/85
[2020-09-03 23:00] VITALS: BP 160/82
[2020-09-04 03:22] VITALS: BP 154/98
[2020-09-04 05:14] LABS: ALBUMIN 3.1 g/dL (3.4-5.0); ALBUMIN/GLOBULIN RATIO 0.7 (1.0-1.7); CALCIUM 9.4 mg/dL (8.5-10.1); CREATININE 1.2 mg/dL (0.7-1.3); GFR 61.1; POTASSIUM 3.7 mmol/L (3.5-5.1); TOTAL BILIRUBIN 0.4 mg/dL (0.2-1.0); TOTAL PROTEIN 7.5 g/dL (6.4-8.2)
[2020-09-04 07:00] VITALS: BP 119/72
[2020-09-04] MEDS: APIXABAN 5 MG TABLET. PO SCH (08:06)
[2020-09-04] MEDS: hydroCHLOROthiazide 25 MG TABLET PO SCH (08:06)
[2020-09-04] MEDS: PANTOPRAZOLE 40 MG TABLET.DR. PO SCH (08:06)
[2020-09-04] MEDS: THIAMINE 100 MG TABLET. PO SCH (08:06)
[2020-09-04] MEDS: LISINOPRIL 20 MG TABLET PO SCH (08:07)
[2020-09-04] MEDS: ATORVASTATIN CALCIUM 10 MG TABLET. PO SCH (08:07)
--- NOTE | 2020-09-04 08:26 | PDOC ---
PROGRESS NOTES Date of Service: DATE: 09/04/20 TIME: 08:25 Chief Complaint Chief Complaint impression acute hypoxic respiratory failure - likely secondary to large bilateral PE. Will have 6 minute walk vs ABG prior to d/c to assess for degree of mismatch large subseg Pulmonary embolism, provoked - eliquis 3 months then check for d dimer elevation to plan d/c occlusive deep venous thrombosis in the left distal popliteal and posterior tibial veins. by US 09-03 recent left ankle fracture, healing, wearing boot as he should Morbid obesity, BMI 46, he has a plan to change, JESSIKA on CPAP htn, hyperlipidemia , hepatic steatosis pulmonary embolus in all 5 lobes. Clot burden is moderate. There is evidence of right ventricular strain. PLAN primary care is Dr. Eleni Eric 09-03 CONSULT PULM MEDICINE 12 LEAD EKG QTC =[id number] CARDS CONSULT ELIQUIS 10 MG PO BID X 1 WEEK, THEN 5 MG PO BID He will require 3 months of anticoagulation (at least.) Follow up venous Dopplers and CTA chest in 6 weeks. PULM follow up in THEIR office. patient to lose weight. Continue home CPAP. Once he is fully ambulatory and minimizes his future risk for thromboembolic disease, anticoagulation can be stopped in 3 months. 6 MIN WALK OK NO NEED FOR HOME O2 09-04 D/C PLANNING 36 MIN History of Present Illness History of Present Illness Demar is a 65-year-old male admit for progressive shortness of air over the past 3 days. He was in denial that he had a problem, but was checking his pulse ox, as he is lo COVID research study, was short of breath yesterday, and Sa02 was 89% then, and today he had chest pain, and was worried and called EMS. Sa02 in the field was 80%. He had ankle surgery after a fall on the ice, August 07 of this year and he had been progressing well up until the previous 3 days. he feels better after SQ lovenox, and he had substernal chest heaviness and pain that is now better. No fever or cough. He has been tested for COVID 4 times recently, for he ankle and mult times for the research study he is in. denies any new sick contacts. 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 he spent 9 years in the [employer] as a young man 08/31: Now 93% on 5 L nasal cannula oxygen. Still tachycardic. Overall is feeling a little bit better. Some pain in his left leg. [place] better after shower. Afebrile. Notes he is in a COVID-19 drug trial and was tested negative multiple times 09/01: COVID-19 returned negative. No signs of right heart strain on echocardiogram. Ankle x-ray looks good. Plan to transition to Eliquis tonight and ensure that its affordable. We will get 6-minute walk tomorrow morning prior to discharge. 09/02: Patient seen and evaluated, currently breathing on 4 L nasal cannula. Plan for 6-minute walk today and discharged on home oxygen. He will need Eliquis for 3 months. We will have social service agency director help with providing as any free samples as possible. 09-03 VENOUS DOPPLERS BILATERAL LEGS, PULM CONSULT Vitals Vitals Vital Signs Date Time Temp Pulse Resp B/P (MAP) Pulse Ox O2 Delivery O2 Flow Rate FiO2 09/04/20 08:07 60 154/98 09/04/20 03:22 98.4 20 98 Nasal Cannula 2.0 98.4 Physical Exam General: Alert, Oriented X3, Cooperative, No acute distress Heart: Regular rate, Normal S1, Normal S2 Lungs: Clear Abdomen: Normal bowel sounds, Soft (obese, nt), No tenderness Extremities: No edema Skin: No rashes Labs LABS EXAMINATION: US BILATERAL LOWEREXTREMITY VENOUS DOPPLER, 09/03/2020 10:33 AM CLINICAL INDICATION: Pulmonary embolism. Post left ankle ORIF COMPARISON: None Available. PROCEDURE: Multiple grayscale, color Doppler and spectral Doppler sonographic images of the bilateral lower extremities were obtained. FINDINGS: There is occlusive thrombus in the distal left popliteal vein and left posterior tibial veins. The bilateral common femoral and superficial femoral veins, and right popliteal vein are compressible, and echolucent with normal flow on color Doppler imaging. The left peroneal and right calf veins are patent. IMPRESSION: Positive exam for occlusive deep venous thrombosis in the left distal popliteal and posterior tibial veins. Results discussed with the patient's nurse Mehta by Dr. Vaughan at 11:15 am on 09/03/2020. Electronically signed by: Nelly Vaughan MD (09/03/2020 11:17 AM) [id number] DICTATED and SIGNED BY: NELLY VAUGHAN MD OCEDURE: ABDOMEN COMPLETE EXAMINATION: US US ABDOMEN COMPLETE CLINICAL HISTORY: Transaminitis TECHNIQUE: Grayscale sonographic imaging of the abdomen obtained with color Doppler imaging and spectral Doppler analysis as indicated. COMPARISON: None FINDINGS: Pancreas: Not visualized secondary to prominent overlying bowel gas. Liver: - Echotexture: Appears homogeneous, but suboptimally assessed - Echogenicity: Increased, compatible with hepatic steatosis - Surface contour: Smooth - Lesions: None Biliary: No intrahepatic biliary duct dilation. - CBD: mm at the hilum. - Gallbladder: Nondistended, and therefore suboptimally evaluated. No pericholecystic fluid. Spleen: - Craniocaudal length: 12.4 cm. - Lesions: None Right Kidney: - Renal length: 14.3 cm - Parenchyma: Normal parenchymal echogenicity. Normal parenchymal thickness. - Collecting system: No hydronephrosis. - Calculus: No echogenic, shadowing calculus. - Lesion: None Left Kidney: - Renal length: 15.0 cm - Parenchyma: Normal parenchymal echogenicity. Normal parenchymal thickness. - Collecting system: No hydronephrosis. - Calculus: No echogenic, shadowing calculus. - Lesion: None IVC: Poorly visualized. Abdominal Aorta: Poorly visualized. Ascites: None. IMPRESSION: Limited evaluation with multiple poorly visualized or suboptimally evaluated structures as described. Findings compatible with hepatic steatosis. Electronically signed by: Morgan Villatoro DO (09/03/2020 3:56 PM) [id number] DICTATED and SIGNED BY: MORGAN VILLATORO DO DATE: 09/03/20 [id number] Laboratory Tests Test 09/03/20 11:13 09/04/20 04:23 White Blood Count 5.4 x10^3/uL (4.0-11.0) Red Blood Count 4.76 x10^6/uL (4.30-5.70) Hemoglobin 14.5 g/dL (13.0-17.5) Hematocrit 43.8 % (39.0-53.0) Mean Corpuscular Volume 92 fL (79-100) Mean Corpuscular Hemoglobin 30 pg (25-35) Mean Corpuscular Hemoglobin Concent 33 g/dL (31-37) Red Cell Distribution Width 13.9 % (11.5-14.5) Platelet Count 162 x10^3/uL (140-400) Neutrophils (%) (Auto) 60 % (31-73) Lymphocytes (%) (Auto) 31 % (24-48) Monocytes (%) (Auto) 7 % (0-9) Eosinophils (%) (Auto) 2 % (0-3) Basophils (%) (Auto) 1 % (0-3) Neutrophils # (Auto) 3.3 x10^3/uL (1.8-7.7) Lymphocytes # (Auto) 1.7 x10^3/uL (1.0-4.8) Monocytes # (Auto) 0.4 x10^3/uL (0.0-1.1) Eosinophils # (Auto) 0.1 x10^3/uL (0.0-0.7) Basophils # (Auto) 0.0 x10^3/uL (0.0-0.2) Prothrombin Time 15.5 SEC (11.7-14.0) Prothromb Time International Ratio 1.3 (0.8-1.1) Sodium Level 135 mmol/L (136-145) 135 mmol/L (136-145) Potassium Level 4.3 mmol/L (3.5-5.1) 3.7 mmol/L (3.5-5.1) Chloride Level 100 mmol/L (98-107) 100 mmol/L (98-107) Carbon Dioxide Level 29 mmol/L (21-32) 28 mmol/L (21-32) Anion Gap 6 (6-14) 7 (6-14) Blood Urea Nitrogen 15 mg/dL (8-26) 16 mg/dL (8-26) Creatinine 1.3 mg/dL (0.7-1.3) 1.2 mg/dL (0.7-1.3) Estimated GFR (Cockcroft-Gault) 55.8 61.1 BUN/Creatinine Ratio 12 (6-20) 13 (6-20) Glucose Level 104 mg/dL (70-99) 100 mg/dL (70-99) Calcium Level 9.6 mg/dL (8.5-10.1) 9.4 mg/dL (8.5-10.1) Total Bilirubin 0.5 mg/dL (0.2-1.0) 0.4 mg/dL (0.2-1.0) Aspartate Amino Transf (AST/SGOT) 152 U/L (15-37) 126 U/L (15-37) Alanine Aminotransferase (ALT/SGPT) 165 U/L (16-63) 186 U/L (16-63) Alkaline Phosphatase 70 U/L (46-116) 66 U/L (46-116) Total Protein 7.7 g/dL (6.4-8.2) 7.5 g/dL (6.4-8.2) Albumin 3.1 g/dL (3.4-5.0) 3.1 g/dL (3.4-5.0) Albumin/Globulin Ratio 0.7 (1.0-1.7) 0.7 (1.0-1.7) Assessment and Plan Assessmemt and Plan Problems Medical Problems: (1) Hypoxemia Status: Acute (2) Pulmonary emboli Status: Acute Comment Review of Relevant I have reviewed the following items suzanna (where applicable) has been applied. Labs Laboratory Tests Test 09/03/20 11:13 09/04/20 04:23 White Blood Count 5.4 x10^3/uL (4.0-11.0) Red Blood Count 4.76 x10^6/uL (4.30-5.70) Hemoglobin 14.5 g/dL (13.0-17.5) Hematocrit 43.8 % (39.0-53.0) Mean Corpuscular Volume 92 fL (79-100) Mean Corpuscular Hemoglobin 30 pg (25-35) Mean Corpuscular Hemoglobin Concent 33 g/dL (31-37) Red Cell Distribution Width 13.9 % (11.5-14.5) Platelet Count 162 x10^3/uL (140-400) Neutrophils (%) (Auto) 60 % (31-73) Lymphocytes (%) (Auto) 31 % (24-48) Monocytes (%) (Auto) 7 % (0-9) Eosinophils (%) (Auto) 2 % (0-3) Basophils (%) (Auto) 1 % (0-3) Neutrophils # (Auto) 3.3 x10^3/uL (1.8-7.7) Lymphocytes # (Auto) 1.7 x10^3/uL (1.0-4.8) Monocytes # (Auto) 0.4 x10^3/uL (0.0-1.1) Eosinophils # (Auto) 0.1 x10^3/uL (0.0-0.7) Basophils # (Auto) 0.0 x10^3/uL (0.0-0.2) Prothrombin Time 15.5 SEC (11.7-14.0) Prothromb Time International Ratio 1.3 (0.8-1.1) Sodium Level 135 mmol/L (136-145) 135 mmol/L (136-145) Potassium Level 4.3 mmol/L (3.5-5.1) 3.7 mmol/L (3.5-5.1) Chloride Level 100 mmol/L (98-107) 100 mmol/L (98-107) Carbon Dioxide Level 29 mmol/L (21-32) 28 mmol/L (21-32) Anion Gap 6 (6-14) 7 (6-14) Blood Urea Nitrogen 15 mg/dL (8-26) 16 mg/dL (8-26) Creatinine 1.3 mg/dL (0.7-1.3) 1.2 mg/dL (0.7-1.3) Estimated GFR (Cockcroft-Gault) 55.8 61.1 BUN/Creatinine Ratio 12 (6-20) 13 (6-20) Glucose Level 104 mg/dL (70-99) 100 mg/dL (70-99) Calcium Level 9.6 mg/dL (8.5-10.1) 9.4 mg/dL (8.5-10.1) Total Bilirubin 0.5 mg/dL (0.2-1.0) 0.4 mg/dL (0.2-1.0) Aspartate Amino Transf (AST/SGOT) 152 U/L (15-37) 126 U/L (15-37) Alanine Aminotransferase (ALT/SGPT) 165 U/L (16-63) 186 U/L (16-63) Alkaline Phosphatase 70 U/L (46-116) 66 U/L (46-116) Total Protein 7.7 g/dL (6.4-8.2) 7.5 g/dL (6.4-8.2) Albumin 3.1 g/dL (3.4-5.0) 3.1 g/dL (3.4-5.0) Albumin/Globulin Ratio 0.7 (1.0-1.7) 0.7 (1.0-1.7) Laboratory Tests Test 09/03/20 11:13 09/04/20 04:23 White Blood Count 5.4 x10^3/uL (4.0-11.0) Red Blood Count 4.76 x10^6/uL (4.30-5.70) Hemoglobin 14.5 g/dL (13.0-17.5) Hematocrit 43.8 % (39.0-53.0) Mean Corpuscular Volume 92 fL (79-100) Mean Corpuscular Hemoglobin 30 pg (25-35) Mean Corpuscular Hemoglobin Concent 33 g/dL (31-37) Red Cell Distribution Width 13.9 % (11.5-14.5) Platelet Count 162 x10^3/uL (140-400) Neutrophils (%) (Auto) 60 % (31-73) Lymphocytes (%) (Auto) 31 % (24-48) Monocytes (%) (Auto) 7 % (0-9) Eosinophils (%) (Auto) 2 % (0-3) Basophils (%) (Auto) 1 % (0-3) Neutrophils # (Auto) 3.3 x10^3/uL (1.8-7.7) Lymphocytes # (Auto) 1.7 x10^3/uL (1.0-4.8) Monocytes # (Auto) 0.4 x10^3/uL (0.0-1.1) Eosinophils # (Auto) 0.1 x10^3/uL (0.0-0.7) Basophils # (Auto) 0.0 x10^3/uL (0.0-0.2) Prothrombin Time 15.5 SEC (11.7-14.0) Prothromb Time International Ratio 1.3 (0.8-1.1) Sodium Level 135 mmol/L (136-145) 135 mmol/L (136-145) Potassium Level 4.3 mmol/L (3.5-5.1) 3.7 mmol/L (3.5-5.1) Chloride Level 100 mmol/L (98-107) 100 mmol/L (98-107) Carbon Dioxide Level 29 mmol/L (21-32) 28 mmol/L (21-32) Anion Gap 6 (6-14) 7 (6-14) Blood Urea Nitrogen 15 mg/dL (8-26) 16 mg/dL (8-26) Creatinine 1.3 mg/dL (0.7-1.3) 1.2 mg/dL (0.7-1.3) Estimated GFR (Cockcroft-Gault) 55.8 61.1 BUN/Creatinine Ratio 12 (6-20) 13 (6-20) Glucose Level 104 mg/dL (70-99) 100 mg/dL (70-99) Calcium Level 9.6 mg/dL (8.5-10.1) 9.4 mg/dL (8.5-10.1) Total Bilirubin 0.5 mg/dL (0.2-1.0) 0.4 mg/dL (0.2-1.0) Aspartate Amino Transf (AST/SGOT) 152 U/L (15-37) 126 U/L (15-37) Alanine Aminotransferase (ALT/SGPT) 165 U/L (16-63) 186 U/L (16-63) Alkaline Phosphatase 70 U/L (46-116) 66 U/L (46-116) Total Protein 7.7 g/dL (6.4-8.2) 7.5 g/dL (6.4-8.2) Albumin 3.1 g/dL (3.4-5.0) 3.1 g/dL (3.4-5.0) Albumin/Globulin Ratio 0.7 (1.0-1.7) 0.7 (1.0-1.7) Microbiology 08/30/20 Blood Culture - Preliminary, Resulted NO GROWTH AFTER 4 DAYS Medications Current Medications Sodium Chloride 1,000 ml @ 1,000 mls/hr Q1H IV Last administered on 08/30/20at 14:26; Start 08/30/20 at 13:00; Stop 08/30/20 at 13:59; Status DC Iohexol (Omnipaque 350 Mg/ml) 100 ml 1X ONCE IV Last administered on 08/30/20at 14:35; Start 08/30/20 at 14:15; Stop 08/30/20 at 14:16; Status DC Info (CONTRAST GIVEN -- Rx MONITORING) 1 each PRN DAILY PRN MC SEE COMMENTS; Start 08/30/20 at 14:15; Stop 09/01/20 at 14:14; Status DC Enoxaparin Sodium (Lovenox 150mg Syringe) 150 mg 1X ONCE SQ Last administered on 08/30/20at 15:09; Start 08/30/20 at 14:45; Stop 08/30/20 at 14:46; Status DC Ondansetron HCl (Zofran) 4 mg PRN Q8HRS PRN IV NAUSEA/VOMITING; Start 08/30/20 at 14:45; Stop 08/31/20 at 14:44; Status DC Acetaminophen (Tylenol) 650 mg PRN Q4HRS PRN PO FEVER > 100.3'F; Start 08/30/20 at 14:45; Stop 08/31/20 at 14:44; Status DC Levofloxacin/ Dextrose 150 ml @ 100 mls/hr 1X ONCE IV Last administered on 08/30/20at 15:07; Start 08/30/20 at 15:00; Stop 08/30/20 at 16:29; Status DC Enoxaparin Sodium (Lovenox Per Pharmacy Treatment Dosing) 1 each PRN DAILY PRN MC SEE COMMENTS; Start 08/30/20 at 20:00; Stop 09/01/20 at 15:17; Status DC Enoxaparin Sodium (Lovenox 150mg Syringe) 150 mg BID SQ ; Start 08/30/20 at 20:00; Status Cancel Enoxaparin Sodium (Lovenox 150mg Syringe) 150 mg BID SQ Last administered on 09/01/20at 09:24; Start 08/31/20 at 09:00; Stop 09/01/20 at 15:17; Status DC Hydrochlorothiazide (Hydrodiuril) 6.25 mg DAILY PO Last administered on 09/04/20at 08:06; Start 08/31/20 at 13:00 Lisinopril (Prinivil) 20 mg DAILY PO Last administered on 09/03/20at 08:55; Start 08/31/20 at 13:00; Stop 09/03/20 at 11:24; Status DC Thiamine Mononitrate (Vitamin B-1) 100 mg DAILY PO Last administered on 09/04/20at 08:06; Start 08/31/20 at 13:00 Atorvastatin Calcium (Lipitor) 5 mg DAILY PO Last administered on 09/04/20at 08:07; Start 08/31/20 at 13:00 Pantoprazole Sodium (Protonix) 40 mg DAILYAC PO Last administered on 09/04/20at 08:06; Start 08/31/20 at 13:00 Perflutren Protein Type A Microsphe (Optison) 0.66 mg STK-MED ONCE IV ; Start 08/31/20 at 15:18; Stop 08/31/20 at 15:18; Status DC Apixaban (Eliquis) 10 mg BID PO Last administered on 09/04/20at 08:06; Start 09/01/20 at 21:00; Stop 09/08/20 at 09:01 Info (Anti-Coagulation Monitoring By Pharmacy) 1 each PRN DAILY PRN MC SEE COMMENTS; Start 09/03/20 at 08:15 Perflutren Protein Type A Microsphe (Optison) 0.66 mg STK-MED ONCE IV ; Start 08/31/20 at 15:30; Stop 09/03/20 at 08:45; Status DC Lisinopril (Prinivil) 20 mg BID PO Last administered on 09/04/20at 08:07; Start 09/03/20 at 21:00 Active Scripts Active Eliquis (Apixaban) 5 Mg Tablet 5 Mg PO BID 30 Days Reported Prilosec Otc (Omeprazole Magnesium) 20 Mg Tablet.dr 20 Mg PO DAILY Vitamin B-1 (Thiamine Mononitrate) 100 Mg Tablet 100 Mg PO DAILY Lovastatin 20 Mg Tablet 20 Mg PO DAILY Hydrochlorothiazide Capsule (Hydrochlorothiazide) 12.5 Mg Capsule 6.25 Mg PO DAILY Lisinopril 20 Mg Tablet 20 Mg PO DAILY Vitals/I & O Vital Sign - Last 24 Hours 09/03/20 09/03/20 09/03/20 09/03/20 08:55 11:00 15:00 19:00 Temp 98.2 98.2 98.3 98.2 98.2 98.3 Pulse 70 79 75 84 Resp 18 18 18 B/P (MAP) 158/86 143/76 (98) 148/70 (96) 142/85 (104) Pulse Ox 95 92 94 O2 Delivery Nasal Cannula Nasal Cannula Nasal Cannula O2 Flow Rate 2.0 2.0 2.0 09/03/20 09/03/20 09/03/20 09/04/20 19:31 21:27 23:00 03:22 Temp 98.2 98.4 98.2 98.4 Pulse 84 82 60 Resp 18 20 B/P (MAP) 142/85 160/82 (108) 154/98 (116) Pulse Ox 96 98 O2 Delivery Room Air Nasal Cannula Nasal Cannula O2 Flow Rate 2.0 2.0 09/04/20 08:07 Pulse 60 B/P (MAP) 154/98 Intake and Output 09/03/20 09/03/20 09/04/20 15:00 23:00 07:00 Intake Total 400 ml Output Total 250 ml 150 ml Balance -250 ml 250 ml Justicifation of Admission Dx: Justifications for Admission: Justification of Admission Dx: N/A BEKAH SHER MD Sep 04, 2020 08:25
[2020-09-04 10:20] VITALS: BP 123/76
--- NOTE | 2020-09-04 10:58 | PDOC3 ---
Discharge Summary Date of Admission: Aug 30, 2020 Date of Discharge: Sep 04, 2020 Follow-Up: 3-5 days Admitting Diagnosis comment: CONSULTS, CARDIOLOGY, PULM d/c condition good prognosis, excellent complications none DISCHARGE DX Chief Complaint impression acute hypoxic respiratory failure - likely secondary to large bilateral PE. W ill have 6 minute walk vs ABG prior to d/c to assess for degree of mismatch large subseg Pulmonary embolism, provoked - eliquis 3 months then check for d dimer elevation to plan d/c occlusive deep venous thrombosis in the left distal popliteal and posterior tibial veins. by US 09-03 recent left ankle fracture, healing, wearing boot as he should Morbid obesity, BMI 46, he has a plan to change, JESSIKA on CPAP htn, hyperlipidemia , hepatic steatosis pulmonary embolus in all 5 lobes. Clot burden is moderate. There is evidence of right ventricular strain. PLAN primary care is Dr. Eleni Eric to see her one-2 weeks 09-03 CONSULT PULM MEDICINE 12 LEAD EKG QTC =[id number] CARDS CONSULT ELIQUIS 10 MG PO BID X 1 WEEK, THEN 5 MG PO BID He will require 3 months of anticoagulation (at least.) Follow up venous Dopplers and CTA chest in 6 weeks. PULM follow up in THEIR office. 2-3 weeks patient to lose weight. Continue home CPAP. Once he is fully ambulatory and minimizes his future risk for thromboembolic disease, anticoagulation can be stopped in 3 months. 6 MIN WALK OK NO NEED FOR HOME O2 09-04 D/C PLANNING 36 MIN History of Present Illness History of Present Illness Demar is a 65-year-old male admit for progressive shortness of air over the past 3 days. He was in denial that he had a problem, but was checking his pulse ox, as he is lo COVID research study, was short of breath yesterday, and Sa02 was 89% then, and today he had chest pain, and was worried and called EMS. Sa02 in the field was 80%. He had ankle surgery after a fall on the ice, August 07 of this year and he had been progressing well up until the previous 3 days. he feels better after SQ lovenox, and he had substernal chest heaviness and pain that is now better. No fever or cough. He has been tested for COVID 4 times recently, for he ankle and mult times for the research study he is in. denies any new sick contacts. 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 he spent 9 years in the [employer] as a young man 08/31: Now 93% on 5 L nasal cannula oxygen. Still tachycardic. Overall is feeling a little bit better. Some pain in his left leg. [place] better after shower. Afebrile. Notes he is in a COVID-19 drug trial and was tested negative multiple times 09/01: COVID-19 returned negative. No signs of right heart strain on echocardiogram. Ankle x-ray looks good. Plan to transition to Eliquis tonight and ensure that its affordable. We will get 6-minute walk tomorrow morning prior to discharge. 09/02: Patient seen and evaluated, currently breathing on 4 L nasal cannula. Plan for 6-minute walk today and discharged on home oxygen. He will need Eliquis for 3 months. We will have social insurance specialist help with providing as any free samples as possible. 09-03 VENOUS DOPPLERS BILATERAL LEGS, PULM CONSULT Vitals Vitals Vital Signs Date Time Temp Pulse Resp B/P (MAP) Pulse Ox O2 Delivery O2 Flow Rate FiO2 09/04/20 08:07 60 154/98 09/04/20 03:22 98.4 20 98 Nasal Cannula 2.0 98.4 Physical Exam General: Alert, Oriented X3, Cooperative, No acute distress Heart: Regular rate, Normal S1, Normal S2 Lungs: Clear Abdomen: Normal bowel sounds, Soft (obese, nt), No tenderness Extremities: No edema Skin: No rashes Labs LABS EXAMINATION: US BILATERAL LOWEREXTREMITY VENOUS DOPPLER, 09/03/2020 10:33 AM CLINICAL INDICATION: Pulmonary embolism. Post left ankle ORIF COMPARISON: None Available. PROCEDURE: Multiple grayscale, color Doppler and spectral Doppler sonographic images of the bilateral lower extremities were obtained. FINDINGS: There is occlusive thrombus in the distal left popliteal vein and left posterior tibial veins. The bilateral common femoral and superficial femoral veins, and right popliteal vein are compressible, and echolucent with normal flow on color Doppler imaging. The left peroneal and right calf veins are patent. IMPRESSION: Positive exam for occlusive deep venous thrombosis in the left distal popliteal and posterior tibial veins. Results discussed with the patient's nurse Janine by Dr. Vaughan at 11:15 am on 09/03/2020. Electronically signed by: Nelly Vaughan MD (09/03/2020 11:17 AM) [id number] DICTATED and SIGNED BY: NELLY VAUGHAN MD OCEDURE: ABDOMEN COMPLETE EXAMINATION: US US ABDOMEN COMPLETE CLINICAL HISTORY: Transaminitis TECHNIQUE: Grayscale sonographic imaging of the abdomen obtained with color Doppler imaging and spectral Doppler analysis as indicated. COMPARISON: None FINDINGS: Pancreas: Not visualized secondary to prominent overlying bowel gas. Liver: - Echotexture: Appears homogeneous, but suboptimally assessed - Echogenicity: Increased, compatible with hepatic steatosis - Surface contour: Smooth - Lesions: None Biliary: No intrahepatic biliary duct dilation. - CBD: mm at the hilum. - Gallbladder: Nondistended, and therefore suboptimally evaluated. No pericholecystic fluid. Spleen: - Craniocaudal length: 12.4 cm. - Lesions: None Right Kidney: - Renal length: 14.3 cm - Parenchyma: Normal parenchymal echogenicity. Normal parenchymal thickness. - Collecting system: No hydronephrosis. - Calculus: No echogenic, shadowing calculus. - Lesion: None Left Kidney: - Renal length: 15.0 cm - Parenchyma: Normal parenchymal echogenicity. Normal parenchymal thickness. - Collecting system: No hydronephrosis. - Calculus: No echogenic, shadowing calculus. - Lesion: None IVC: Poorly visualized. Abdominal Aorta: Poorly visualized. Ascites: None. IMPRESSION: Limited evaluation with multiple poorly visualized or suboptimally evaluated structures as described. Findings compatible with hepatic steatosis. Electronically signed by: Morgan Simon DO (09/03/2020 3:56 PM) [id number] FINAL DIAGNOSIS Problems Medical Problems: (1) Hypoxemia Status: Acute (2) Pulmonary emboli Status: Acute Brief Hospital Course Mr. Freed is a 65 old [sex] who presented with [ acute pulm embolus ] CONDITION AT DISCHARGE: Improved Discharge Medications Current Medications Sodium Chloride 1,000 ml @ 1,000 mls/hr Q1H IV Last administered on 08/30/20at 14:26; Start 2/18/21 at 13:00; Stop 08/30/20 at 13:59; Status DC Iohexol (Omnipaque 350 Mg/ml) 100 ml 1X ONCE IV Last administered on 08/30/20at 14:35; Start 08/30/20 at 14:15; Stop 08/30/20 at 14:16; Status DC Info (CONTRAST GIVEN -- Rx MONITORING) 1 each PRN DAILY PRN MC SEE COMMENTS; Start 08/30/20 at 14:15; Stop 09/01/20 at 14:14; Status DC Enoxaparin Sodium (Lovenox 150mg Syringe) 150 mg 1X ONCE SQ Last administered on 08/30/20at 15:09; Start 08/30/20 at 14:45; Stop 08/30/20 at 14:46; Status DC Ondansetron HCl (Zofran) 4 mg PRN Q8HRS PRN IV NAUSEA/VOMITING; Start 08/30/20 at 14:45; Stop 08/31/20 at 14:44; Status DC Acetaminophen (Tylenol) 650 mg PRN Q4HRS PRN PO FEVER > 100.3'F; Start 08/30/20 at 14:45; Stop 08/31/20 at 14:44; Status DC Levofloxacin/ Dextrose 150 ml @ 100 mls/hr 1X ONCE IV Last administered on 08/30/20at 15:07; Start 08/30/20 at 15:00; Stop 08/30/20 at 16:29; Status DC Enoxaparin Sodium (Lovenox Per Pharmacy Treatment Dosing) 1 each PRN DAILY PRN MC SEE COMMENTS; Start 08/30/20 at 20:00; Stop 09/01/20 at 15:17; Status DC Enoxaparin Sodium (Lovenox 150mg Syringe) 150 mg BID SQ ; Start 08/30/20 at 20:00; Status Cancel Enoxaparin Sodium (Lovenox 150mg Syringe) 150 mg BID SQ Last administered on 09/01/20at 09:24; Start 08/31/20 at 09:00; Stop 09/01/20 at 15:17; Status DC Hydrochlorothiazide (Hydrodiuril) 6.25 mg DAILY PO Last administered on 09/04/20at 08:06; Start 08/31/20 at 13:00 Lisinopril (Prinivil) 20 mg DAILY PO Last administered on 09/03/20at 08:55; Start 08/31/20 at 13:00; Stop 09/03/20 at 11:24; Status DC Thiamine Mononitrate (Vitamin B-1) 100 mg DAILY PO Last administered on 09/04/20at 08:06; Start 08/31/20 at 13:00 Atorvastatin Calcium (Lipitor) 5 mg DAILY PO Last administered on 09/04/20at 08:07; Start 08/31/20 at 13:00 Pantoprazole Sodium (Protonix) 40 mg DAILYAC PO Last administered on 09/04/20at 08:06; Start 08/31/20 at 13:00 Perflutren Protein Type A Microsphe (Optison) 0.66 mg STK-MED ONCE IV ; Start 08/31/20 at 15:18; Stop 08/31/20 at 15:18; Status DC Apixaban (Eliquis) 10 mg BID PO Last administered on 09/04/20at 08:06; Start 09/01/20 at 21:00; Stop 09/08/20 at 09:01 Info (Anti-Coagulation Monitoring By Pharmacy) 1 each PRN DAILY PRN MC SEE COMMENTS; Start 09/03/20 at 08:15 Perflutren Protein Type A Microsphe (Optison) 0.66 mg STK-MED ONCE IV ; Start 08/31/20 at 15:30; Stop 09/03/20 at 08:45; Status DC Lisinopril (Prinivil) 20 mg BID PO Last administered on 09/04/20at 08:07; Start 09/03/20 at 21:00 Apixaban (Eliquis) 5 mg BID PO ; Start 09/08/20 at 21:00 Active Scripts Active Eliquis (Apixaban) 5 Mg Tablet 5 Mg PO BID 30 Days Reported Prilosec Otc (Omeprazole Magnesium) 20 Mg Tablet.dr 20 Mg PO DAILY Vitamin B-1 (Thiamine Mononitrate) 100 Mg Tablet 100 Mg PO DAILY Lovastatin 20 Mg Tablet 20 Mg PO DAILY Hydrochlorothiazide Capsule (Hydrochlorothiazide) 12.5 Mg Capsule 6.25 Mg PO DAILY Lisinopril 20 Mg Tablet 20 Mg PO DAILY Vital Signs Vital Signs Date Time Temp Pulse Resp B/P (MAP) Pulse Ox O2 Delivery O2 Flow Rate FiO2 09/04/20 10:20 98.6 75 16 123/76 (92) 95 Room Air 98.6 09/04/20 08:00 2.0 Labs Laboratory Tests Test 09/03/20 11:13 09/04/20 04:23 White Blood Count 5.4 x10^3/uL (4.0-11.0) Red Blood Count 4.76 x10^6/uL (4.30-5.70) Hemoglobin 14.5 g/dL (13.0-17.5) Hematocrit 43.8 % (39.0-53.0) Mean Corpuscular Volume 92 fL (79-100) Mean Corpuscular Hemoglobin 30 pg (25-35) Mean Corpuscular Hemoglobin Concent 33 g/dL (31-37) Red Cell Distribution Width 13.9 % (11.5-14.5) Platelet Count 162 x10^3/uL (140-400) Neutrophils (%) (Auto) 60 % (31-73) Lymphocytes (%) (Auto) 31 % (24-48) Monocytes (%) (Auto) 7 % (0-9) Eosinophils (%) (Auto) 2 % (0-3) Basophils (%) (Auto) 1 % (0-3) Neutrophils # (Auto) 3.3 x10^3/uL (1.8-7.7) Lymphocytes # (Auto) 1.7 x10^3/uL (1.0-4.8) Monocytes # (Auto) 0.4 x10^3/uL (0.0-1.1) Eosinophils # (Auto) 0.1 x10^3/uL (0.0-0.7) Basophils # (Auto) 0.0 x10^3/uL (0.0-0.2) Prothrombin Time 15.5 SEC (11.7-14.0) Prothromb Time International Ratio 1.3 (0.8-1.1) Sodium Level 135 mmol/L (136-145) 135 mmol/L (136-145) Potassium Level 4.3 mmol/L (3.5-5.1) 3.7 mmol/L (3.5-5.1) Chloride Level 100 mmol/L (98-107) 100 mmol/L (98-107) Carbon Dioxide Level 29 mmol/L (21-32) 28 mmol/L (21-32) Anion Gap 6 (6-14) 7 (6-14) Blood Urea Nitrogen 15 mg/dL (8-26) 16 mg/dL (8-26) Creatinine 1.3 mg/dL (0.7-1.3) 1.2 mg/dL (0.7-1.3) Estimated GFR (Cockcroft-Gault) 55.8 61.1 BUN/Creatinine Ratio 12 (6-20) 13 (6-20) Glucose Level 104 mg/dL (70-99) 100 mg/dL (70-99) Calcium Level 9.6 mg/dL (8.5-10.1) 9.4 mg/dL (8.5-10.1) Total Bilirubin 0.5 mg/dL (0.2-1.0) 0.4 mg/dL (0.2-1.0) Aspartate Amino Transf (AST/SGOT) 152 U/L (15-37) 126 U/L (15-37) Alanine Aminotransferase (ALT/SGPT) 165 U/L (16-63) 186 U/L (16-63) Alkaline Phosphatase 70 U/L (46-116) 66 U/L (46-116) Total Protein 7.7 g/dL (6.4-8.2) 7.5 g/dL (6.4-8.2) Albumin 3.1 g/dL (3.4-5.0) 3.1 g/dL (3.4-5.0) Albumin/Globulin Ratio 0.7 (1.0-1.7) 0.7 (1.0-1.7) Laboratory Tests Test 09/03/20 11:13 09/04/20 04:23 White Blood Count 5.4 x10^3/uL (4.0-11.0) Red Blood Count 4.76 x10^6/uL (4.30-5.70) Hemoglobin 14.5 g/dL (13.0-17.5) Hematocrit 43.8 % (39.0-53.0) Mean Corpuscular Volume 92 fL (79-100) Mean Corpuscular Hemoglobin 30 pg (25-35) Mean Corpuscular Hemoglobin Concent 33 g/dL (31-37) Red Cell Distribution Width 13.9 % (11.5-14.5) Platelet Count 162 x10^3/uL (140-400) Neutrophils (%) (Auto) 60 % (31-73) Lymphocytes (%) (Auto) 31 % (24-48) Monocytes (%) (Auto) 7 % (0-9) Eosinophils (%) (Auto) 2 % (0-3) Basophils (%) (Auto) 1 % (0-3) Neutrophils # (Auto) 3.3 x10^3/uL (1.8-7.7) Lymphocytes # (Auto) 1.7 x10^3/uL (1.0-4.8) Monocytes # (Auto) 0.4 x10^3/uL (0.0-1.1) Eosinophils # (Auto) 0.1 x10^3/uL (0.0-0.7) Basophils # (Auto) 0.0 x10^3/uL (0.0-0.2) Prothrombin Time 15.5 SEC (11.7-14.0) Prothromb Time International Ratio 1.3 (0.8-1.1) Sodium Level 135 mmol/L (136-145) 135 mmol/L (136-145) Potassium Level 4.3 mmol/L (3.5-5.1) 3.7 mmol/L (3.5-5.1) Chloride Level 100 mmol/L (98-107) 100 mmol/L (98-107) Carbon Dioxide Level 29 mmol/L (21-32) 28 mmol/L (21-32) Anion Gap 6 (6-14) 7 (6-14) Blood Urea Nitrogen 15 mg/dL (8-26) 16 mg/dL (8-26) Creatinine 1.3 mg/dL (0.7-1.3) 1.2 mg/dL (0.7-1.3) Estimated GFR (Cockcroft-Gault) 55.8 61.1 BUN/Creatinine Ratio 12 (6-20) 13 (6-20) Glucose Level 104 mg/dL (70-99) 100 mg/dL (70-99) Calcium Level 9.6 mg/dL (8.5-10.1) 9.4 mg/dL (8.5-10.1) Total Bilirubin 0.5 mg/dL (0.2-1.0) 0.4 mg/dL (0.2-1.0) Aspartate Amino Transf (AST/SGOT) 152 U/L (15-37) 126 U/L (15-37) Alanine Aminotransferase (ALT/SGPT) 165 U/L (16-63) 186 U/L (16-63) Alkaline Phosphatase 70 U/L (46-116) 66 U/L (46-116) Total Protein 7.7 g/dL (6.4-8.2) 7.5 g/dL (6.4-8.2) Albumin 3.1 g/dL (3.4-5.0) 3.1 g/dL (3.4-5.0) Albumin/Globulin Ratio 0.7 (1.0-1.7) 0.7 (1.0-1.7) Allergies Allergies Coded Allergies Type Severity Reaction Last Updated Verified No Known Drug Allergies 10/20/13 No Disposition/Orders: D/C to Home Justicifation of Admission Dx: Justifications for Admission: Justification of Admission Dx: N/A BEKAH SHER MD Sep 04, 2020 10:58
[2020-09-04] MEDS ORDERED: APIX5TAB PO (11:02)
[2020-09-04] MEDS ORDERED: LISI-130 PO (11:02)
--- NOTE | 2020-09-04 11:03 | DISCH ---
DISCHARGE INSTRUCTIONS Condition on Discharge Condition on Discharge: Stable Activity After Discharge Activity Instructions for Disc: Activity as tolerated, Other, see below Lifting Instructions after Dis: No heavy lifting, No pulling or pushing Driving Instructions after Dis: Do not drive Weight Bearing Status after Di: Non weight bearing Diet after Discharge Diet after Discharge: Cardiac, Regular Diet Texture: Regular Liquid Texture: Thin Liquid Swallowing Supervision: None needed Checks after Discharge Checks after discharge: Check blood press - daily, Check your Temp as needed Contacting the DRNikki after DC Call your doctor for: If your condition worsens Follow-Up Follow up with: dr Eric 1-2 weeks Follow Up With: pulmonary 3 weeks Treatment/Equipment after DC Adaptive Equipment Issued: None, Brace/splint BEKAH SHER MD Sep 04, 2020 11:03
--- NOTE | 2020-09-04 11:15 | NUR ---
Discharge Note: BEKAH FRANK SHEVLIN Discharge instructions and discharge home medications reviewed with Patient and a copy given. All questions have been answered and understanding verbalized. The following instructions and handouts were given: d/c instructions, follow up instructions given to patient Discontinued lines and drains: Peripheral IV intact. Patient discharged to Home or Self Care with Family Member via Ambulated
--- NOTE | 2020-09-04 11:28 | NUR ---
SS following up with discharge planning. SS reviewed pt chart and discussed with pt RN. Pt is currently on room air. Pt passed six minute walk. Pt has home CPAP. Discharge order on the chart for home with self care.
--- NOTE | 2020-09-04 11:30 | PDOC ---
PULMONARY PROGRESS NOTES DATE: 09/04/20 TIME: 11:27 Subjective Patient is resting comfortably on room air Denies any shortness of breath or increased cough Vitals Vital Signs Date Time Temp Pulse Resp B/P (MAP) Pulse Ox O2 Delivery O2 Flow Rate FiO2 09/04/20 10:20 98.6 75 16 123/76 (92) 95 Room Air 98.6 09/04/20 08:00 2.0 ROS: No Nausea, No Chest Pain, No Abdominal Pain, No Increase Cough General: Alert Lungs: Clear Cardiovascular: S1 Abdomen: Soft, Non-tender, Other ([id number] ) Neuro Exam: Alert, Oriented Extremities: No Edema Skin: Warm, Dry Labs Laboratory Tests Test 09/03/20 11:13 09/04/20 04:23 White Blood Count 5.4 x10^3/uL (4.0-11.0) Red Blood Count 4.76 x10^6/uL (4.30-5.70) Hemoglobin 14.5 g/dL (13.0-17.5) Hematocrit 43.8 % (39.0-53.0) Mean Corpuscular Volume 92 fL (79-100) Mean Corpuscular Hemoglobin 30 pg (25-35) Mean Corpuscular Hemoglobin Concent 33 g/dL (31-37) Red Cell Distribution Width 13.9 % (11.5-14.5) Platelet Count 162 x10^3/uL (140-400) Neutrophils (%) (Auto) 60 % (31-73) Lymphocytes (%) (Auto) 31 % (24-48) Monocytes (%) (Auto) 7 % (0-9) Eosinophils (%) (Auto) 2 % (0-3) Basophils (%) (Auto) 1 % (0-3) Neutrophils # (Auto) 3.3 x10^3/uL (1.8-7.7) Lymphocytes # (Auto) 1.7 x10^3/uL (1.0-4.8) Monocytes # (Auto) 0.4 x10^3/uL (0.0-1.1) Eosinophils # (Auto) 0.1 x10^3/uL (0.0-0.7) Basophils # (Auto) 0.0 x10^3/uL (0.0-0.2) Prothrombin Time 15.5 SEC (11.7-14.0) Prothromb Time International Ratio 1.3 (0.8-1.1) Sodium Level 135 mmol/L (136-145) 135 mmol/L (136-145) Potassium Level 4.3 mmol/L (3.5-5.1) 3.7 mmol/L (3.5-5.1) Chloride Level 100 mmol/L (98-107) 100 mmol/L (98-107) Carbon Dioxide Level 29 mmol/L (21-32) 28 mmol/L (21-32) Anion Gap 6 (6-14) 7 (6-14) Blood Urea Nitrogen 15 mg/dL (8-26) 16 mg/dL (8-26) Creatinine 1.3 mg/dL (0.7-1.3) 1.2 mg/dL (0.7-1.3) Estimated GFR (Cockcroft-Gault) 55.8 61.1 BUN/Creatinine Ratio 12 (6-20) 13 (6-20) Glucose Level 104 mg/dL (70-99) 100 mg/dL (70-99) Calcium Level 9.6 mg/dL (8.5-10.1) 9.4 mg/dL (8.5-10.1) Total Bilirubin 0.5 mg/dL (0.2-1.0) 0.4 mg/dL (0.2-1.0) Aspartate Amino Transf (AST/SGOT) 152 U/L (15-37) 126 U/L (15-37) Alanine Aminotransferase (ALT/SGPT) 165 U/L (16-63) 186 U/L (16-63) Alkaline Phosphatase 70 U/L (46-116) 66 U/L (46-116) Total Protein 7.7 g/dL (6.4-8.2) 7.5 g/dL (6.4-8.2) Albumin 3.1 g/dL (3.4-5.0) 3.1 g/dL (3.4-5.0) Albumin/Globulin Ratio 0.7 (1.0-1.7) 0.7 (1.0-1.7) Laboratory Tests Test 09/04/20 04:23 Sodium Level 135 mmol/L (136-145) Potassium Level 3.7 mmol/L (3.5-5.1) Chloride Level 100 mmol/L (98-107) Carbon Dioxide Level 28 mmol/L (21-32) Anion Gap 7 (6-14) Blood Urea Nitrogen 16 mg/dL (8-26) Creatinine 1.2 mg/dL (0.7-1.3) Estimated GFR (Cockcroft-Gault) 61.1 BUN/Creatinine Ratio 13 (6-20) Glucose Level 100 mg/dL (70-99) Calcium Level 9.4 mg/dL (8.5-10.1) Total Bilirubin 0.4 mg/dL (0.2-1.0) Aspartate Amino Transf (AST/SGOT) 126 U/L (15-37) Alanine Aminotransferase (ALT/SGPT) 186 U/L (16-63) Alkaline Phosphatase 66 U/L (46-116) Total Protein 7.5 g/dL (6.4-8.2) Albumin 3.1 g/dL (3.4-5.0) Albumin/Globulin Ratio 0.7 (1.0-1.7) Medications Active Scripts Medications Dose Route/Sig Max Daily Dose Days Date Category Lisinopril 40 Mg Tablet 20 Mg PO BID 30 09/04/20 Rx Eliquis (Apixaban) 5 Mg Tablet 5 Mg PO BID 30 09/04/20 Rx Eliquis (Apixaban) 5 Mg Tablet 10 Mg PO BID 7 09/04/20 Rx Prilosec Otc (Omeprazole Magnesium) 20 Mg Tablet.dr 20 Mg PO DAILY 08/07/20 Reported Vitamin B-1 (Thiamine Mononitrate) 100 Mg Tablet 100 Mg PO DAILY 11/02/13 Reported Lovastatin 20 Mg Tablet 20 Mg PO DAILY 10/20/13 Reported Hydrochlorothiazide Capsule (Hydrochlorothiazide) 12.5 Mg Capsule 6.25 Mg PO DAILY 10/20/13 Reported Lisinopril 20 Mg Tablet 20 Mg PO DAILY 10/20/13 Reported Impression . IMPRESSION: 1. Dyspnea with acute hypoxic respiratory failure present on admission secondary to acute bilateral pulmonary embolism with infarction involving the left lower lobe. He has evidence of left lower extremity deep venous thrombosis. The risk factors include surgery on 08/07 on his left knee. He has been immobile since then. His underlying obesity is also another contributing factor. There is no family history of thromboembolic disease and there is no history of known cancers. 2. Abnormal CT chest related to thromboembolic disease on all 5 lobes along with left lower lobe pulmonary infarction. Less likely pneumonia. 3. Underlying obesity. 4. Obstructive sleep apnea, on home CPAP with good compliance. Plan . RECOMMENDATIONS: Patient is stable from a pulmonary standpoint, remains on room air Continue Eliquis will require 3 months of anticoagulation at minimum Follow-up venous Dopplers and CTA of chest and 6 weeks Continue CPAP at home 6-minute walk prior to discharge DVT/GI prophylaxis Patient to follow-up in the office Discussed with JACEY Morel to discharge home today after 6-minute walk RADHA DAVIS MD Sep 04, 2020 11:30
[2020-09-08] MEDS ORDERED: APIXABAN 5 MG TABLET. PO SCH (21:00)
== END 2020-09-04 12:40 | disposition home or self-care (01) | DRG 175 ==
LOC: ER 12:48 → ED HOLD 14:40 → 6 SOUTH 19:18 → 2 NORTH 09-01 16:45
PROVIDERS: ADMIT Internal Medicine; ATTEND Internal Medicine
DX: I26.99 Other pulmonary embolism without acute cor pulmonale (principal); J96.01 Acute respiratory failure with hypoxia; Z68.42 Body mass index [BMI] 45.0-49.9, adult; I82.432 Acute embolism and thrombosis of left popliteal vein; I82.442 Acute embolism and thrombosis of left tibial vein; E78.5 Hyperlipidemia, unspecified; E66.01 Morbid (severe) obesity due to excess calories; I10 Essential (primary) hypertension; K21.9 Gastro-esophageal reflux disease without esophagitis; G47.33 Obstructive sleep apnea (adult) (pediatric); K76.0 Fatty (change of) liver, not elsewhere classified; E78.00 Pure hypercholesterolemia, unspecified; I44.0 Atrioventricular block, first degree; Z20.822 Contact with and (suspected) exposure to COVID-19; Z87.891 Personal history of nicotine dependence; Z79.01 Long term (current) use of anticoagulants; Z82.49 Family history of ischemic heart disease and other diseases of the circulatory system
CPT/HCPCS: 36415; 71045; 71275; 73600; 76700; 80053; 83880; 84484; 85025; 85610; 87040; 93005; 93306; 93970; 94618; 96361; 96365; 96366; 96372; 99291; J1650; J1956; J7030; Q9956; Q9967; U0003; G0378